=== PATIENT | female | born 1945 | race Asian ===

== ENCOUNTER 2017-03-01 15:53 | Inpatient (IN) | payer OTHER ==
[~2017-03-01] VITALS: Ht 157.5 cm; Wt 62.1 kg
--- NOTE | 2017-03-01 16:00 | NUR ---
PT AMBULATORY TO ER BED 09 ACCOMPANIED BY FAMILY. PT IS C/O RUQ ABDOMINAL PAIN X 2 DAYS. PT ALSO C/O N/V. PLACED ON MONITOR. STABLE VITALS. AWAITING MD LENNON.
--- NOTE | 2017-03-01 16:09 | NUR ---
DR VERMA AT BEDSIDE FOR EVAL.
[2017-03-01] MEDS ORDERED: MORPHINE SULFATE INJ 4 MG/ML DISP.SYRIN ONE ×2 (16:18→16:27)
[2017-03-01] MEDS ORDERED: ONDANSETRON HCL/PF 4 MG/2 ML VIAL ONE (16:18)
--- NOTE | 2017-03-01 16:19 | NUR ---
IV LINE STARTED BLOOD DRAWN AND SENT TO LAB.
[2017-03-01 16:23] LABS: BASOPHILS # (AUTO) 0.1 /CMM (0.0-0.2); BASOPHILS % (AUTO) 0.7 % (0.0-2.0); EOSINOPHILS # (AUTO) 0.1 /CMM (0.0-0.7); EOSINOPHILS % (AUTO) 1.2 % (0.0-6.0); HEMATOCRIT 46 % (33-45); HEMOGLOBIN 15.2 g/dL (11.5-14.8); LYMPHOCYTES # (AUTO) 3.1 /CMM (0.8-4.8); MEAN CORPUSCULAR HEMOGLOBIN 30 PG (26.0-33.0); MEAN CORPUSCULAR HGB CONC 33 g/dl (31.0-36.0); MEAN CORPUSCULAR VOLUME 89 fL (82-100); MONOCYTES # (AUTO) 0.6 /CMM (0.1-1.30); MONOCYTES % (AUTO) 4.6 % (2.0-12.0); NEUTROPHILS # (AUTO) 8.6 /CMM (1.8-8.9); NEUTROPHILS % (AUTO) 68.5 % (43.0-81.0); PLATELET COUNT (AUTO) 212 /CMM (150-450); RDW COEFFICIENT OF VARIATION 12.9 (11.5-15.0); RED BLOOD CELL COUNT(AUTO) 5.16 MIL/uL (4.0-5.2); WHITE BLOOD COUNT (AUTO) 12.5 K/uL (4.3-11.0)
[2017-03-01] MEDS ORDERED: ONDANSETRON HCL/PF 4 MG/2 ML VIAL IVP ONE (16:30)
[2017-03-01] MEDS ORDERED: IV NS 0.9% 1,000 ML BAG IV ONE ×2 (16:30→17:30)
[2017-03-01] MEDS ORDERED: MORPHINE SULFATE INJ 2 MG/ML DISP.SYRIN IV ONE (16:30)
[2017-03-01 16:36] LABS: CALCIUM, SERUM 9.5 mg/dL (8.5-10.1); CARBON DIOXIDE 28 mmol/L (21-32); CHLORIDE 104 mmol/L (98-107); CREATININE 0.8 mg/dL (0.6-1.3); GLUCOSE 122 mg/dL (74-106); POTASSIUM 3.7 mmol/L (3.5-5.1); SODIUM SERUM 140 mmol/L (136-145); UREA NITROGEN, BLOOD 10 mg/dL (7-18)
[2017-03-01 16:37] LABS: INR 1.09 (0.87-1.13); PROTHROMBIN TIME 11.3 SECS (9.5-12.7)
[2017-03-01 16:42] LABS: ALANINE AMINOTRANSFERASE 34 U/L (12-78); ALBUMIN 3.5 g/dL (3.4-5.0); ALKALINE PHOSPHATASE 101 U/L (46-116); ASPARTATE AMINOTRANSFERASE 85 U/L (15-37); BILIRUBIN,DIRECT 0.5 mg/dL (0.0-0.2); LIPASE 167 U/L (73-393); TOTAL PROTEIN, SERUM 8.8 g/dL (6.4-8.2)
[2017-03-01] MEDS ORDERED: LEVOFLOXACIN 750 MG /D5W 150ML 150 ML IV ONE ×2 (17:27→17:30)
[2017-03-01 17:55] LABS: APPEARANCE,URINE Clear (CLEAR); BILIRUBIN,URINE SMALL (NEGATIVE); BLOOD, URINE Trace-intact Ery/uL (NEGATIVE); COLOR,URINE Yellow (YELLOW); KETONES,URINE Negative (NEGATIVE); LEUKOCYTE ESTERASE ,URINE Trace (NEGATIVE); NITRITE, URINE Negative (NEGATIVE); PH,URINE 7.5 (5.0-8.0); PROTEIN,URINE 100 mg/dl (NEGATIVE); UGLUCOSE Negative (NEGATIVE)
[2017-03-01] MEDS ORDERED: LEVO50TA8 PO (18:04)
[2017-03-01] MEDS ORDERED: HYDR-548 PO (18:04)
[2017-03-01 18:08] LABS: SQUAMOUS EPITHELIAL CELL,UR Few /HPF (None Seen)
[2017-03-01 18:09] LABS: BACTERIA,URINE Few /HPF (None Seen); COARSE GRANULAR CASTS,URINE Few /LPF (None Seen); MUCUS,URINE Moderate /LPF (None Seen)
--- NOTE | 2017-03-01 18:11 | NUR ---
CALLED DriverSide, PRIMARY CLASS TEACHER WAS PAGED.
[2017-03-01] MEDS ORDERED: ZOLPIDEM TARTRATE 5 MG TABLET PO PRN (18:30)
[2017-03-01] MEDS ORDERED: MAG HYDROX/AL HYDROX/SIMETH 30 ML UDC PO PRN (18:30)
[2017-03-01] MEDS ORDERED: HYDROCODONE/APAP 5/325MG 1 EACH TABLET PO PRN (18:30)
[2017-03-01] MEDS ORDERED: Z GUARD REMEDY 2 OZ OINT TP PRN (18:30)
[2017-03-01] MEDS ORDERED: ALBUTEROL FS 2.5 MG/3 ML VIAL.NEB NEB PRN (18:30)
[2017-03-01] MEDS ORDERED: MAGNESIUM HYDROXIDE 30 ML UDC PO PRN (18:30)
[2017-03-01] MEDS ORDERED: ACETAMINOPHEN 325 MG TABLET PO PRN (18:30)
--- NOTE | 2017-03-01 18:46 | NUR ---
TRIED CALLING FOR REPORT. PLACED ON LONG HOLD.
[2017-03-01 19:45] VITALS: BP 140/68
--- NOTE | 2017-03-01 19:45 | NUR ---
BRASS FINISHER NOTES RECEIVED PATIENT FROM ER VIA [facility], ACCOMPANIED BY PATIENT DAUGHTER AND GRANDDAUGHTER. PATIENT ABLE TO AMBULATE STEADILY WITH ASSISTANCE FROM GURNEY TO BED. PATIENT PLACED ON TELEMETRY MONITORING, REVEALING SINUS RHYTHM, HR = 88 AT THIS TIME. BREATHING IS EVEN AND NONLABORED, TOLERATING ROOM AIR WELL, DENIES NEED FOR ADDITIONAL O2. IV SITE FLUSHED WITH NS, PATENT AND INTACT, FREE FROM ANY S/S OF INFILTRATION OR PHLEBITIS, WILL START IVF AND IV ANTIBIOTICS ORDERED. PATIENT REFUSES TO REMOVE PANTS, UNABLE TO ASSESS SKIN UNDER PANTS. THE SKIN THAT IS VISIBLE IS INTACT, WILL CONTINUE TO CLOSELY MONITOR. PLAN OF CARE DISCUSSED WITH THE PATIENT AND HER FAMILY MEMBERS, WHOM ALL VERBALIZE UNDERSTANDING REGARDING THE PLAN. ALL PERTINENT QUESTIONS AND CONCERNS ADDRESSED. BED LEFT IN LOWEST AND LOCKED POSITION. WILL CONTINUE TO CLOSELY MONITOR
[2017-03-01 20:00] VITALS: BP 140/68
[2017-03-01] MEDS: CEFTRIAXONE 1 G in IV D5W 50 ML IV SCH (20:19)
[2017-03-01] MEDS: IV NS 0.9% 1,000 ML IV PRN (20:19)
[2017-03-01] MEDS: AZITHROMYCIN 250 MG TABLET PO SCH (20:19)
[2017-03-01] MEDS: HYDROCODONE/APAP 10/325MG 1 EA TABLET PO PRN (20:37)
[2017-03-02] VITALS: BP 138/61
[2017-03-02 04:00] VITALS: BP 159/76
[2017-03-02] MEDS: HYDROCODONE/APAP 10/325MG 1 EA TABLET PO PRN ×2 (04:11→14:40)
[2017-03-02] MEDS: ONDANSETRON HCL/PF 4 MG/2 ML VIAL IVP PRN (04:11)
--- NOTE | 2017-03-02 04:45 | NUR ---
RN NOTES 0411 PATIENT NOTED WITH NAUSEA, ZOFRAN ADMINISTERED. NOTED WITH EPISODE OF EMESIS @ 0415. PATIENT GIVEN EMESIS BAG. ENCOURAGED PATIENT TO MINIMIZE MOVEMENT, SINCE SHE STATED THAT MOVING AROUND AND GOING TO THE BATHROOM MADE HER DIZZY. SAFETY MAINTAINED AT ALL TIMES, PATIENT'S GRAND DAUGHTER REMAINS AT BEDSIDE. WILL CONTINUE TO CLOSELY MONITOR
[2017-03-02 06:50] LABS: BASOPHILS % (AUTO) 0.3 % (0.0-2.0); EOSINOPHILS % (AUTO) 0.4 % (0.0-6.0); HEMATOCRIT 39 % (33-45); HEMOGLOBIN 12.9 g/dL (11.5-14.8); LYMPHOCYTES # (AUTO) 2.1 /CMM (0.8-4.8); LYMPHOCYTES % (AUTO) 27.4 % (20.0-44.0); MEAN CORPUSCULAR HEMOGLOBIN 30 PG (26.0-33.0); MEAN CORPUSCULAR HGB CONC 33 g/dl (31.0-36.0); MEAN CORPUSCULAR VOLUME 89 fL (82-100); MONOCYTES # (AUTO) 0.5 /CMM (0.1-1.30); MONOCYTES % (AUTO) 6.6 % (2.0-12.0); NEUTROPHILS # (AUTO) 4.9 /CMM (1.8-8.9); NEUTROPHILS % (AUTO) 65.3 % (43.0-81.0); PLATELET COUNT (AUTO) 158 /CMM (150-450); RDW COEFFICIENT OF VARIATION 13.3 (11.5-15.0); RED BLOOD CELL COUNT(AUTO) 4.36 MIL/uL (4.0-5.2); WHITE BLOOD COUNT (AUTO) 7.5 K/uL (4.3-11.0)
--- NOTE | 2017-03-02 07:00 | NUR ---
RN CLOSING NOTES PATIENT REMAINS IN BED, WITH GRANDDAUGHTER AT BEDSIDE. NO ACUTE CHANGES, PATIENT ENDORSED TO THE AM SHIFT NURSE FOR BENJA
--- NOTE | 2017-03-02 07:05 | NUR ---
RN INITIAL NOTE PATIENT RECEIVED IN BED, RESTING. AWAKE, ALERT AND ORIENTED. [facility] SPEAKING. GRANDDAUGHTER AT BEDSIDE TRANSLATING. ABLE TO MAKE NEEDS KNOWN. SINUS RHYTHM ON TELE MONITOR. NO S/S OF PAIN OR DISCOMFORT. RESPIRATIONS ARE EVEN AND UNLABORED. NO S/S SOB OR RESPIRATORY DISTRESS. SATING WELL ON 2L NASAL CANULA. SKIN IS WARM AND DRY TO TOUCH. IV SITE FLUSHED, PATENT. SAFETY PRECAUTIONS IMPLEMENTED, BED IN LOCKED, LOW POSITION WITH TWO SIDE RAILS UP. CALL LIGHT AND BELONGINGS WITHIN EASY REACH. WILL CONTINUE TO MONITOR CLOSELY.
[2017-03-02 07:06] LABS: CALCIUM, SERUM 8.4 mg/dL (8.5-10.1); CARBON DIOXIDE 23 mmol/L (21-32); CHLORIDE 107 mmol/L (98-107); CREATININE 0.7 mg/dL (0.6-1.3); GLUCOSE 135 mg/dL (74-106); POTASSIUM 4.1 mmol/L (3.5-5.1); SODIUM SERUM 140 mmol/L (136-145); UREA NITROGEN, BLOOD 8 mg/dL (7-18)
[2017-03-02 07:07] LABS: MAGNESIUM 1.8 mg/dL (1.8-2.4); PHOSPHORUS 3.3 mg/dL (2.5-4.9)
[2017-03-02 07:30] LABS: CHOLESTEROL 157 mg/dL (<200); HDL CHOLESTEROL 25 mg/dL (40-60); LDL 106 mg/dL (0-99); TRIGLYCERIDES 139 mg/dL (30-150)
[2017-03-02] MEDS: LEVOTHYROXINE SODIUM 50 MCG TABLET PO SCH (07:48)
[2017-03-02] MEDS: PANTOPRAZOLE 40 MG TABLET.DR PO SCH (07:49)
[2017-03-02 08:00] VITALS: BP 133/66
[2017-03-02] MEDS: IV NS 0.9% 1,000 ML IV PRN (10:18)
[2017-03-02 12:00] VITALS: BP_SYST 128; BP_DIAS 61; BP_DIAS 71
[2017-03-02 16:00] VITALS: BP 127/65
[2017-03-02] MEDS: CEFTRIAXONE 1 G in IV D5W 50 ML IV SCH (18:35)
[2017-03-02] MEDS: AZITHROMYCIN 250 MG TABLET PO SCH (18:35)
--- NOTE | 2017-03-02 19:30 | NUR ---
HOTEL OFFICE MANAGER NOTES RECEIVED PATIENT FROM DAY SHIFT NURSE. PATIENT IS A/O X4, MARTINIQUAIS SPEAKING, FAMILY MEMBERS AT BEDSIDE TO AIDE IN TRANSLATION. BREATHING IS EVEN AND NONLABORED, TOLERATING ROOM AIR WELL, DENIES NEED FOR ADDITIONAL O2, S/P RIGHT US GUIDED THORACENTESIS. PATIENT STATES NOTED IMPROVEMENT IN RESPIRATORY FUNCTION AFTER FLUID WAS REMOVED. IV SITE FLUSHED WITH NS, PATENT AND INTACT, FREE FROM ANY S/S OF INFILTRATION OR PHLEBITIS, IVF INFUSING PRESCRIBED. PLAN OF CARE DISCUSSED WITH THE PATIENT AND HER FAMILY MEMBERS, WHOM ALL VERBALIZE UNDERSTANDING REGARDING THE PLAN. ALL PERTINENT QUESTIONS AND CONCERNS ADDRESSED. BED LEFT IN LOWEST AND LOCKED POSITION. WILL CONTINUE TO CLOSELY MONITOR
[2017-03-02 20:00] VITALS: BP 126/63
[2017-03-03] VITALS: BP 123/66
[2017-03-03 04:00] VITALS: BP 133/58
[2017-03-03] MEDS: HYDROCODONE/APAP 10/325MG 1 EA TABLET PO PRN ×2 (04:28→14:03)
[2017-03-03] MEDS: ONDANSETRON HCL/PF 4 MG/2 ML VIAL IVP PRN (04:28)
[2017-03-03] MEDS: IV NS 0.9% 1,000 ML IV PRN ×2 (04:29→18:02)
--- NOTE | 2017-03-03 07:00 | NUR ---
RN CLOSING NOTES PATIENT RESTING COMFORTABLY IN BED, DENIES PAIN AT THIS TIME. NO ACUTE CHANGES THROUGHOUT SHIFT, PATIENT ENDORSED TO THE AM SHIFT NURSE FOR BENJA
--- NOTE | 2017-03-03 07:00 | NUR ---
RN NOTES REPORT RECEIVED AT THE BEDSIDE. PATIENT RESTING COMFORTABLY IN BED. NO SOB OR DISTRESS NOTED AT THIS TIME. PATIENT DENIES PAIN. HEART RATE SR IN THE 60S. BED IN A LOW POSITION, CALL LIGHT WITHIN PATIENT REACH, FAMILY IS AT THE BEDSIDE. WILL CONTINUE TO MONITOR.
[2017-03-03] MEDS: PANTOPRAZOLE 40 MG TABLET.DR PO SCH (07:48)
[2017-03-03] MEDS: LEVOTHYROXINE SODIUM 50 MCG TABLET PO SCH (07:48)
[2017-03-03 08:00] VITALS: BP 123/58
[2017-03-03 16:00] VITALS: BP 120/61
[2017-03-03 16:54] VITALS: BP 120/61
[2017-03-03] MEDS: CEFTRIAXONE 1 G in IV D5W 50 ML IV SCH (18:02)
--- NOTE | 2017-03-03 18:32 | NUR ---
RN CLOSING NOTES NO SIGNIFICANT CHANGES IN PATIENT CONDITION THROUGHOUT THE SHIFT. NO SOB OR DISTRESS NOTED AT THIS TIME. PATIENT DENIES SIGNIFICANT PAIN. BED IN A LOW POSITION, CALL LIGHT WITHIN PATIENT REACH, FAMILY IS AT THE BEDSIDE. WILL ENDORSE FOR BENJA.
--- NOTE | 2017-03-03 19:30 | NUR ---
Received patient in the bed with family member at bedside.Requested that I turn IVF on.Turn on and place on the left side of bed so PT will have better access to the restroom.No unusual signs or symptoms observed or reported,no signs of discomfort or distress.Resting quietly.Vital signs taken all are in the normal range.NS is attached and infusing at 75 cc/hr via a heplock on the right arm.No redness or swelling at insertion site.
[2017-03-03 20:00] VITALS: BP 134/67
[2017-03-04] MEDS: HYDROCODONE/APAP 10/325MG 1 EA TABLET PO PRN ×3 (00:20→19:17)
--- NOTE | 2017-03-04 00:21 | NUR ---
Requested pain medication.Medicated with [place] 10 mg as per Md's orders,no problems
[2017-03-04 04:00] VITALS: BP 124/65
--- NOTE | 2017-03-04 06:54 | NUR ---
Returned medication after patient's daughter said patient wants to take meds after breakfast,no problems
[2017-03-04 08:00] VITALS: BP 141/71
[2017-03-04] MEDS: PANTOPRAZOLE 40 MG TABLET.DR PO SCH (09:29)
[2017-03-04] MEDS: LEVOTHYROXINE SODIUM 50 MCG TABLET PO SCH (09:29)
[2017-03-04] MEDS ORDERED: IV NS 0.9% 250 ML IV ONE (10:58)
[2017-03-04] MEDS ORDERED: CT SWABBABLE VALVE TRANS SET 1 EA INFUS.SET MC ONE (10:58)
[2017-03-04] MEDS ORDERED: IOHEXOL-300 100 ML VIAL IV ONE (10:58)
[2017-03-04] MEDS: ONDANSETRON HCL/PF 4 MG/2 ML VIAL IVP PRN (11:30)
[2017-03-04 15:03] VITALS: BP 141/71
[2017-03-04 16:00] VITALS: BP 111/66
[2017-03-04] MEDS: CEFTRIAXONE 1 G in IV D5W 50 ML IV SCH (17:40)
--- NOTE | 2017-03-04 19:15 | NUR ---
pt in stable condition.no s/s of distress ,all m.d orders noted.safety precautions in place.bed in low and lock position
[2017-03-04 20:00] VITALS: BP 133/63
[2017-03-04] MEDS: IV NS 0.9% 1,000 ML IV PRN (21:49)
[2017-03-05 04:00] VITALS: BP 131/75
[2017-03-05] MEDS: HYDROCODONE/APAP 10/325MG 1 EA TABLET PO PRN ×3 (04:10→18:31)
--- NOTE | 2017-03-05 07:23 | NUR ---
GUM REMOVER INIATIAL NOTES Received patient in the bed with family member at bedside. Alert and oriented x4, .No unusual signs or symptoms observed or reported,no signs of discomfort or distress.Resting quietly.Vital signs taken all are in the normal range.NS is attached and infusing at 75 cc/hr via a heplock on the right arm.No redness or swelling at insertion site.
--- NOTE | 2017-03-05 07:30 | NUR ---
RECEIVED PT IN BED,
[2017-03-05 08:00] VITALS: BP 109/67
[2017-03-05] MEDS: PANTOPRAZOLE 40 MG TABLET.DR PO SCH (09:25)
[2017-03-05] MEDS: LEVOTHYROXINE SODIUM 50 MCG TABLET PO SCH (09:25)
[2017-03-05] MEDS: IV NS 0.9% 1,000 ML IV PRN ×2 (10:49→23:23)
--- NOTE | 2017-03-05 11:00 | NUR ---
pt asked for pain med, anyi , assess pain 6/10 , r/ hip as reposition, will assess after 1 hr
[2017-03-05] MEDS: CEFTRIAXONE 1 G in IV D5W 50 ML IV SCH (19:06)
--- NOTE | 2017-03-05 19:26 | NUR ---
CARDING MACHINE FEEDER CLOSING NOTES PATIENT AWAKE AND RESTING COMFORTABLY IN BED. A/O X 2 AND VERBALLY RESPONSIVE. ALL NEEDS AND CARE ATTENDED WELL. ON 02 VIA N/C AT 2LPM, TOLERATING WELL WITH SOB NOTED. NO ACUTE CHANGES THROUGHOUT SHIFT. PATIENT ENDORSED TO THE COLLECTION SYSTEMS WORKER NURSE FOR BENJA. Addendum: 03/05/17 at 1930 by MONI LEE LVN CORRECTION: PT DIDN'T HAVE SOB TODAY.
[2017-03-05 20:00] VITALS: BP 142/61
[2017-03-06 04:00] VITALS: BP 138/72
[2017-03-06] MEDS: HYDROCODONE/APAP 10/325MG 1 EA TABLET PO PRN ×2 (04:06→10:24)
--- NOTE | 2017-03-06 07:00 | NUR ---
MS RN NOTE: RECEIVED PT RESTING IN BED. RESPIRATIONS EVEN AND UNLABORED WITH NO SOB NOTED. NAMIBIAN SPEAKING WITH FAMILY AT BEDSIDE AVAILABLE TO TRANSLATE. AOX4, DENIES PAIN. RFA INTACT AND PATENT WITH NS RUNNING AT 75CC/HR. BED LOW, LOCKED, X2 SIDE RAILS UP AND CALL LIGHT WITHIN REACH. WILL CONT TO MONITOR.
[2017-03-06 08:00] VITALS: BP 133/56
[2017-03-06] MEDS: LEVOTHYROXINE SODIUM 50 MCG TABLET PO SCH (08:35)
[2017-03-06] MEDS: PANTOPRAZOLE 40 MG TABLET.DR PO SCH (08:35)
[2017-03-06] MEDS: IV NS 0.9% 1,000 ML IV PRN (08:54)
[2017-03-06] MEDS ORDERED: LEVO500T15 PO (11:26)
--- NOTE | 2017-03-06 12:30 | NUR ---
MS RN NOTE: PATIENT D/C BACK HOME IN STABLE CONDITION. VS: 97.7 TEMP, 63 HR, 18 RR, 91% O2SAT, 133/56. D/C FORMS AND BELONGINGS LIST SIGNED BY DAUGHTER. BELONGINGS RETURNED. D/C PACKET AND RX GIVEN TO DAUGHTER. ORDERS CARRIED OUT. PT LEFT THE UNIT AT 1230 VIA WHEELCHAIR WITH DAUGHTER.
== END 2017-03-06 12:33 | disposition home or self-care (01) | DRG 181 ==
LOC: ER 15:55 → TELE1 19:00 → MEDSG1 03-03 09:52
PROVIDERS: ADMIT Internal Medicine; ATTEND Internal Medicine
PROC: 0W993ZZ Drainage of Right Pleural Cavity, Percutaneous Approach (ICD-10-PCS; principal; 2017-03-02)
DX: C78.2 Secondary malignant neoplasm of pleura (principal); E87.2 Acidosis; J91.0 Malignant pleural effusion; E44.1 Mild protein-calorie malnutrition; K74.60 Unspecified cirrhosis of liver; N39.0 Urinary tract infection, site not specified; J98.11 Atelectasis; E03.9 Hypothyroidism, unspecified; E78.5 Hyperlipidemia, unspecified; F17.200 Nicotine dependence, unspecified, uncomplicated; K21.9 Gastro-esophageal reflux disease without esophagitis; Z92.3 Personal history of irradiation; Z85.3 Personal history of malignant neoplasm of breast; Z92.21 Personal history of antineoplastic chemotherapy; Z68.25 Body mass index [BMI] 25.0-25.9, adult
CPT/HCPCS: 36415; 71010-TC; 71111-TC; 71260-TC; 76942-TC; 80048-TC; 80061-TC; 80076-TC; 81000-TC; 83605-TC; 83690-TC; 83735-TC; 84100-TC; 84155-TC; 84443-TC; 85025-TC; 85730-TC; 86300; 86803; 87040-TC; 87081-TC; 87086-TC; 87340; 88305-TC; 88312-TC; 88342; 89051-TC; 93307-TC; A4606; J0696; J1956; J2270; J2405; J7030; J7042; J7050; J7060; Q9967; Z7610

== ENCOUNTER 2017-09-15 14:11 | Inpatient (IN) | payer MEDICARE, OTHER ==
[~2017-09-15] VITALS: Ht 160 cm; Wt 51.7 kg
[~2017-09-15 14:11] MED LIST: HYDR-548 PO; LEVO500T75 PO; LEVO50TA8 PO
--- NOTE | 2017-09-15 14:15 | NUR ---
BB FAMILY: C/O SOB, HISTORY OF PLEURAL EFFUSION. S/P CHEMO YESTERDAY. A/O X2, BREATHING EVEN AND UNLABORED AT THIS TIME. NAD, VITALS STABLE. SAFETY AND COMFORT MEASURES IN PLACE. AWAITING MD ORDERS
[2017-09-15] MEDS ORDERED: HYDR-548 PO (14:37)
[2017-09-15] MEDS ORDERED: GABA-534 PO (14:37)
[2017-09-15] MEDS ORDERED: ANAS1TAB8 PO (14:37)
[2017-09-15] MEDS ORDERED: FOLI1TAB16 PO (14:37)
[2017-09-15] MEDS ORDERED: FERR325T23 PO (14:37)
[2017-09-15] MEDS ORDERED: LORA1TAB PO (14:37)
[2017-09-15] MEDS ORDERED: CAPE500T15 PO (14:37)
--- NOTE | 2017-09-15 14:40 | NUR ---
NEW IV STARTED ON RAC, 20G, BLOOD DRAWN AND SENT TO LAB.
[2017-09-15 14:48] LABS: BASOPHILS % (AUTO) 0.4 % (0.0-2.0); EOSINOPHILS % (AUTO) 2.2 % (0.0-6.0); HEMATOCRIT 32 % (33-45); HEMOGLOBIN 10.7 g/dL (11.5-14.8); LYMPHOCYTES % (AUTO) 31.9 % (20.0-44.0); MEAN CORPUSCULAR HGB CONC 34 g/dl (31.0-36.0); MEAN CORPUSCULAR VOLUME 84 fL (82-100); MONOCYTES # (AUTO) 0.5 /CMM (0.1-1.30); MONOCYTES % (AUTO) 8.6 % (2.0-12.0); NEUTROPHILS # (AUTO) 3.7 /CMM (1.8-8.9); NEUTROPHILS % (AUTO) 56.9 % (43.0-81.0); PLATELET COUNT (AUTO) 232 /CMM (150-450); RDW COEFFICIENT OF VARIATION 19.1 (11.5-15.0); WHITE BLOOD COUNT (AUTO) 6.3 K/uL (4.3-11.0)
--- NOTE | 2017-09-15 14:55 | NUR ---
AIR CONDITIONING MECHANIC INDUSTRIAL AT BEDSIDE.
[2017-09-15 15:03] LABS: CALCIUM, SERUM 9.2 mg/dL (8.5-10.1); CARBON DIOXIDE 28 mmol/L (21-32); CHLORIDE 107 mmol/L (98-107); CREATININE 0.6 mg/dL (0.6-1.3); GLUCOSE 114 mg/dL (74-106); POTASSIUM 3.6 mmol/L (3.5-5.1); SODIUM SERUM 142 mmol/L (136-145); UREA NITROGEN, BLOOD 13 mg/dL (7-18)
--- NOTE | 2017-09-15 15:03 | NUR ---
Ronan nolen in [facility] - 09/15/17 at 1606 by ROBERT PATIENT TAKEN TO CT VIA STRETCHER.
[2017-09-15 15:12] LABS: TROPONIN I < 0.017 ng/mL (0.00-0.056)
[2017-09-15 15:16] LABS: B-TYPE NATRIURETIC PEPTIDE 107 PG/ML (0-125)
[2017-09-15] MEDS ORDERED: LEVOFLOXACIN 750 MG /D5W 150ML 150 ML IV ONE (15:30)
[2017-09-15] MEDS ORDERED: IV NS 0.9% 1,000 ML BAG IV ONE (15:30)
[2017-09-15] MEDS ORDERED: PIPERACILLIN /TAZOBACTAM 3.375 G in IV D5W 50 ML IV ONE (15:30)
--- NOTE | 2017-09-15 15:45 | NUR ---
CALLED DR MENDEZ DUE TO PT HAVING "REGAL INSURANCE".
--- NOTE | 2017-09-15 15:45 | NUR ---
PT IS ASSIGNED TO [facility] RM#:[id number], PT IS DIAGNOSED WITH PNEUMONIA, AND DR MENDEZ IS THE ACCEPTING MD.
[2017-09-15] MEDS ORDERED: IOHEXOL-300 100 ML VIAL IV ONE (15:49)
[2017-09-15] MEDS ORDERED: IV NS 0.9% 250 ML IV ONE (15:49)
--- NOTE | 2017-09-15 15:55 | NUR ---
PATIENT TAKEN TO CT VIA STRETCHER.
--- NOTE | 2017-09-15 15:58 | NUR ---
REPORT GIVEN TO VICKY MENCHACA FOR BENJA UPON ADMISSION.
[2017-09-15 16:00] VITALS: BP 131/69
--- NOTE | 2017-09-15 16:05 | NUR ---
PATIENT RETURNED FROM CT IN STABLE CONDITION.
--- NOTE | 2017-09-15 16:17 | NUR ---
CALLED DR MENDEZ TO LET HIM KNOW THAT THE PATIENT'S REGAL INSURANCE IS NOT "ACTIVE" PER KARAN IN THE ADMITTING DEPARTMENT. I NOTIFIED HIM THAT PATIENT WILL BE ADMITTED TO THE PANEL GROUP.
--- NOTE | 2017-09-15 16:17 | NUR ---
IVAN MONTERO FOR PANEL CALL AND DR KENNEDY WAS PAGED
[2017-09-15] MEDS ORDERED: ALBUTEROL FS 2.5 MG/3 ML VIAL.NEB CONTNEB ONE (17:00)
[2017-09-15] MEDS ORDERED: ALBUTEROL FS 2.5 MG/3 ML VIAL.NEB ONE (17:03)
--- NOTE | 2017-09-15 17:29 | NUR ---
PATIENT TRANSPORTED TO [facility] VIA ACLS PROTOCOL. RNVICKY TO PROVIDE BENJA.
--- NOTE | 2017-09-15 17:30 | NUR ---
AIRPORT SCREENER RECEIVED PATIENT FROM E.R. DEPT, PATIENT ALERT AND ORIENTED X3, DUTCH SPEAKING ONLY, DAUGHTER AT BEDSIDE FOR TRANSLATION, PATIENT STILL C/O SHORTNESS OF BREATH EVEN AFTER BREATHING TREATMENT, SKIN ASSESSMENT COMPLETED, SKIN DRY AND INTACT, FAMILY ABLE TO PROVIDE HISTORY FOR THE PATIENT. NEEDS ATTENDED AND MET, CALL LIGHT WITHIN REACH, WILL CONTINUE TO MONITOR.
[2017-09-15] MEDS ORDERED: HYDROCODONE/APAP 10/325MG 1 EA TABLET PO PRN (18:00)
[2017-09-15] MEDS ORDERED: ACETAMINOPHEN 325 MG TABLET PO PRN (18:00)
[2017-09-15] MEDS ORDERED: MAG HYDROX/AL HYDROX/SIMETH 30 ML UDC PO PRN (18:00)
[2017-09-15] MEDS ORDERED: CAPECITABINE 500 MG TABLET PO SCH (18:00)
[2017-09-15] MEDS ORDERED: PIPERACILLIN /TAZOBACTAM 4.5 G in IV NS 0.9% 50 ML IV SCH (18:00)
[2017-09-15] MEDS ORDERED: MAGNESIUM HYDROXIDE 30 ML UDC PO PRN (18:00)
[2017-09-15] MEDS ORDERED: Z GUARD REMEDY 2 OZ OINT TP PRN (18:00)
[2017-09-15] MEDS: IV NS 0.9% 1,000 ML IV PRN (18:29)
[2017-09-15] MEDS ORDERED: FEE PK DOSING 1 MIN EA MC ONE (18:30)
[2017-09-15] MEDS: GABAPENTIN 300 MG CAPSULE PO SCH ×2 (18:34→19:00)
[2017-09-15] MEDS: FERROUS SULFATE (325 MG) 325 MG/TAB TABLET PO SCH ×2 (18:38→19:00)
[2017-09-15] MEDS: LEVOTHYROXINE SODIUM 50 MCG TABLET PO SCH ×2 (18:38→19:00)
[2017-09-15] MEDS: FOLIC ACID 1 MG TABLET PO SCH ×2 (18:38→19:00)
--- NOTE | 2017-09-15 19:10 | NUR ---
RN NOTES PATIENT SEEN AND EXAMINED BY DR. KENNEDY, AND RECEIVED NEW ORDERS. ORDER NOTED AND CARRIED OUT. PATIENT'S MEDICATION SENT TO PHARMACY, FOR DISPENSING. PATIENT'S DENIES FEELING SOB AT THIS TIME, CURRENTLY ON O2 AT 4LPM VIA NC. DAUGHTER AT BEDSIDE, AND WILL SPEND NIGHT. ALL DUE MEDS GIVEN ORDERED. PIV PATENT AND FLUSHES WELL, ALL NEEDS ATTENDED AND ANTICIPATED, CALL LIGHT WITHIN REACH, SAFETY MEASURES IN PLACED, WILL ENDORSE TO LUMBER RACKER FOR BENJA.
--- NOTE | 2017-09-15 19:40 | NUR ---
ARTIST SCIENTIFIC NOTES RECEIVED ON BED A/O X2-3,BREATHING NON LABORED,O2 IN USED AT 2L/NC TO KEEP O2 SAT ABOVE 90%.RT AT BEDSIDE ADMINISTERING BREATHING TREATMENT SCHEDULED.PRESENT IVF NS AT 75ML HR RATE IN PROGRESS VIA IV PUMP ON RIGHT AC.DAUGHTER AT BEDSIDE.CALL LIGHT IN REACH,NEEDS ANTICIPATED.
[2017-09-15] MEDS: ALBUTEROL FS 2.5 MG/0.5 ML VIAL.NEB NEB SCH ×2 (19:49→22:50)
[2017-09-15] MEDS: IPRATROPIUM NEB FS 0.5 MG/2.5 ML AMPUL.NEB NEB SCH ×2 (19:49→22:50)
[2017-09-15] MEDS: CAPECITABINE 500 MG PO SCH (19:54)
[2017-09-15] MEDS: VANCOMYCIN 0.75 GM in IV NS 0.9% 250 ML IV SCH (19:54)
--- NOTE | 2017-09-15 19:54 | NUR ---
EXTENSION DIVISION DIRECTOR NOTES TELE SR-81,DUE CAPECITABINE 500MG.2 TABS PO GIVEN.
[2017-09-15 20:00] VITALS: BP 118/65
--- NOTE | 2017-09-15 20:00 | NUR ---
CARD FIXER NOTES STARTED ON LOVENOX 40MG SQ,GIVEN ON RIGHT LOWER ABDOMEN
--- NOTE | 2017-09-15 20:00 | NUR ---
FLIGHT COMMUNICATIONS OPERATOR NOTES STARTED ON VANCOMYCIN 0.75GM IVPB HUNG
[2017-09-15] MEDS: ENOXAPARIN SODIUM 40 MG/0.4 ML DISP.SYRIN SQ SCH (20:07)
[2017-09-15] MEDS: ZOSYN IVPB 3.375 G in IV D5W 50ml IV SCH (21:12)
[2017-09-15] MEDS: ZOLPIDEM TARTRATE 5 MG TABLET PO PRN (21:20)
--- NOTE | 2017-09-15 21:20 | NUR ---
BODY FITTER NOTES DAUGHTER REQUESTED SOMETHING TO RELAX AND SLEEP FOR HRE MOM.AMBIEN 5MG PO GIVEN.
[2017-09-16] VITALS: BP 119/59
[2017-09-16] MEDS: IPRATROPIUM NEB FS 0.5 MG/2.5 ML AMPUL.NEB NEB SCH ×5 (02:54→20:20)
[2017-09-16] MEDS: ALBUTEROL FS 2.5 MG/0.5 ML VIAL.NEB NEB SCH ×5 (02:54→20:20)
[2017-09-16] MEDS: ZOSYN IVPB 3.375 G in IV D5W 50ml IV SCH ×4 (03:06→21:46)
--- NOTE | 2017-09-16 03:15 | NUR ---
ELECTROLYSIS INVESTIGATOR NOTES C/O COUGH,ROBITUSSIN 5ML PO GIVEN ORDERED BY DR FOLEY.
[2017-09-16] MEDS: GUAIFENESIN/D-METHORPHAN HB 5 ML UDC PO PRN ×2 (03:30→21:26)
[2017-09-16 04:00] VITALS: BP 116/65
--- NOTE | 2017-09-16 06:09 | NUR ---
COST RECOVERY TECHNICIAN NOTES SR-79 ON TELE MONITOR.AFEBRILE THRU OUT SHIFT.IVF IN PROGRESS,IV ABX TOLERATED WELL.BREATHING TREATMENT EFFECTIVE ,NO SOB.FOR U/S GUIDED THORACENTESIS TODAY,CONSENT SIGNED ON CHART.CALL LIGHT IN REACH,NEEDS ATTENDED.WILL ENDORSE TO DAY NURSE FOR BENJA.
[2017-09-16 07:18] LABS: BASOPHILS % (AUTO) 0.4 % (0.0-2.0); EOSINOPHILS % (AUTO) 0.6 % (0.0-6.0); HEMATOCRIT 29 % (33-45); HEMOGLOBIN 10.2 g/dL (11.5-14.8); LYMPHOCYTES # (AUTO) 1.3 /CMM (0.8-4.8); LYMPHOCYTES % (AUTO) 21.5 % (20.0-44.0); MEAN CORPUSCULAR HGB CONC 35 g/dl (31.0-36.0); MEAN CORPUSCULAR VOLUME 83 fL (82-100); MONOCYTES # (AUTO) 0.5 /CMM (0.1-1.30); MONOCYTES % (AUTO) 8.3 % (2.0-12.0); NEUTROPHILS # (AUTO) 4.4 /CMM (1.8-8.9); NEUTROPHILS % (AUTO) 69.2 % (43.0-81.0); PLATELET COUNT (AUTO) 207 /CMM (150-450); RDW COEFFICIENT OF VARIATION 18.6 (11.5-15.0); RED BLOOD CELL COUNT(AUTO) 3.55 MIL/uL (4.0-5.2); WHITE BLOOD COUNT (AUTO) 6.2 K/uL (4.3-11.0)
--- NOTE | 2017-09-16 07:34 | NUR ---
SALES ASSOC OPENING NOTES RECEIVED PATIENT AWAKE IN BED WITH DAUGHTER AT BEDSIDE. A/O X 2-3, NO C/O PAIN OR DISCOMFORTS VOICED AT THIS TIME. PT ON SUPPLEMENTAL 02 VIA N/C AT 2LPM, BREATHING EVEN WITH NO SIGNS OF SOB NOTED. ON TELE -MONITORING WITH CURRENT READING OF SINUS RHYTHM AND HR OF 78. IV ACCESS ON RAC INTACT AND PATENT WITH IVF OF NS @ 75ML/HR INFUSING, NO SIGNS OF INFILTRATIONS OR PHLEBITIS AT SITE. HOB ELEVATED. BED LOCKED AND IN LOW POSITION. CALL LIGHT IN REACH. WILL CONTINUE TO MONITOR PT ACCORDINGLY.
[2017-09-16] MEDS: VANCOMYCIN 0.75 GM in IV NS 0.9% 250 ML IV SCH ×2 (07:59→19:57)
[2017-09-16] MEDS: LEVOTHYROXINE SODIUM 50 MCG TABLET PO SCH (07:59)
[2017-09-16 08:00] VITALS: BP 111/55
[2017-09-16] MEDS: FERROUS SULFATE (325 MG) 325 MG/TAB TABLET PO SCH (08:45)
[2017-09-16] MEDS: ANASTROZOLE 1 MG TABLET PO SCH (08:45)
[2017-09-16] MEDS: FOLIC ACID 1 MG TABLET PO SCH (08:45)
[2017-09-16] MEDS: GABAPENTIN 300 MG CAPSULE PO SCH (08:45)
[2017-09-16] MEDS: CAPECITABINE 500 MG PO SCH ×2 (08:45→16:48)
[2017-09-16] MEDS: ONDANSETRON HCL/PF 4 MG/2 ML VIAL IVP PRN (08:53)
[2017-09-16 09:39] LABS: CALCIUM, SERUM 8.7 mg/dL (8.5-10.1); CARBON DIOXIDE 24 mmol/L (21-32); CHLORIDE 108 mmol/L (98-107); CREATININE 0.7 mg/dL (0.6-1.3); GLUCOSE 139 mg/dL (74-106); POTASSIUM 2.9 mmol/L (3.5-5.1); SODIUM SERUM 142 mmol/L (136-145); UREA NITROGEN, BLOOD 5 mg/dL (7-18)
--- NOTE | 2017-09-16 10:00 | NUR ---
RN NOTES PT NOTED WITH LOW LEVEL OF POTASSIUM 2.9, MADE AWARE WITH ORDER TO GIVE K-DUR 60MEQ PO. WILL CARRY OUT ORDER
[2017-09-16] MEDS: POTASSIUM CHLORIDE 20 MEQ TAB.PRT.SR PO SCH ×3 (10:54→14:05)
[2017-09-16 11:09] LABS: ALBUMIN 2.7 g/dL (3.4-5.0); BILIRUBIN,DIRECT 0.1 mg/dL (0.0-0.2); BILIRUBIN,TOTAL 0.6 mg/dL (0.2-1.0); MAGNESIUM 2.4 mg/dL (1.8-2.4); PHOSPHORUS 3.3 mg/dL (2.5-4.9); TOTAL PROTEIN, SERUM 7.2 g/dL (6.4-8.2)
--- NOTE | 2017-09-16 11:18 | NUR ---
1115 RN RAY TO ORDER STAT INR IN ORDER TO PROCEED WITH US GUIDED THORACENTESIS
[2017-09-16 11:29] LABS: INR 1.03 (0.87-1.13)
--- NOTE | 2017-09-16 12:25 | NUR ---
RN NOTES PATIENT S/P U/S GUIDED THORACENTESIS ON RIGHT MIDDLE BACK BY DR CHAMBERS, PT'S DAUGHTER AT BEDSIDE DURING PROCEDURE. OUTPUT WAS 560ML. STAT CHEST X-RAY ORDERED. WILL CONTINUE TO MONITOR.
[2017-09-16] MEDS: IV NS 0.9% 1,000 ML IV PRN (15:38)
[2017-09-16 16:08] VITALS: BP 134/72
--- NOTE | 2017-09-16 18:53 | NUR ---
MS RN CLOSING NOTES PATIENT AWAKE AND RESTING AT MODERATE HIGH BACKREST IN BED. GRAND DAUGHTER AT BEDSIDE. A/O X 3, SAME ABLE TO MAKE NEEDS KNOWN. PT CONTINUES ON 02 VIA N/C AT 2LPM, TOLERATING WELL WITH NO ACUTE RESPIRATORY DISTRESS NOTED. IV ACCESS ON RAC INTACT AND PATENT WITH IVF OF NS @ 75ML/HR INFUSING, NO SIGNS OF INFILTRATIONS OR PHLEBITIS AT SITE NOTED. PT S/P U/S GUIDED THORACENTESIS ON RIGHT MIDDLE BACK, INCISION SITE WITH DRESSING INTACT, CLEAN AND DRY, NO ACTIVE BLEEDING NOTED. HOB KEPT ELEVATED. BED LOCKED AND IN LOW POSITION. CALL LIGHT AND BEDSIDE TABLE KEPT WITHIN PT'S REACH. ALL NEEDS AND CARE ATTENDED WELL. WILL ENDORSED TO HISTOLOGICAL ILLUSTRATOR NURSE FOR BENJA. .
--- NOTE | 2017-09-16 19:20 | NUR ---
RN OPENING NOTE PATIENT RECEIVED UP IN BED, GRAND DAUGHTER AT BEDSIDE. PATIENT IN NO ACUTE DISTRESS, NO SOB, BREATHING EVEN AND UNLABORED, IN NO ACUTE DISTRESS BUT NOTED WITH COUGH. OFFERED COUGH MEDICATION BUT GRAND DAUGHTER VERBALIZED THAT PATIENT DOESN'T WANT TO TAKE COUGH MEDICINE, EXPLAINED RISKS AND BENEFITS X 3 BUT STILL REFUSED AND PREFERS TO HAVE THE BREATHING TX. RESPECTED PT'S DECISION. ALL PATIENT'S NEEDS ATTENDED TO AT THIS TIME. BED PLACED IN LOW POSITION, LOCKED IN PLACE, CALL LIGHT WITHIN EASY REACH. WILL CONTINUE TO MONITOR PT.
[2017-09-16] MEDS: ENOXAPARIN SODIUM 40 MG/0.4 ML DISP.SYRIN SQ SCH (20:59)
--- NOTE | 2017-09-16 21:35 | NUR ---
RN NOTES NOTED PATIENT'S IV PERIPHERAL LINE ON RAC TO BE DISLODGED. INSERTED A NEW IV PERIPHERAL LINE ON RFA G#22, WITH GOOD BLOOD RETURN, FLUSHED WITH 10 CC NS, PATENT AND INTACT. PATIENT TOLERATED PROCEDURE WELL. IVF INFUSING WELL ORDERED. WILL CONTINUE TO MONITOR PT.
[2017-09-16 22:02] VITALS: BP 124/72
[2017-09-16] MEDS: ZOLPIDEM TARTRATE 5 MG TABLET PO PRN (22:58)
[2017-09-17] MEDS: IPRATROPIUM NEB FS 0.5 MG/2.5 ML AMPUL.NEB NEB SCH ×7 (00:14→23:02)
[2017-09-17] MEDS: ALBUTEROL FS 2.5 MG/0.5 ML VIAL.NEB NEB SCH ×7 (00:14→23:02)
[2017-09-17] MEDS: ZOSYN IVPB 3.375 G in IV D5W 50ml IV SCH ×4 (02:48→21:10)
[2017-09-17] MEDS: GUAIFENESIN/D-METHORPHAN HB 5 ML UDC PO PRN ×2 (04:54→11:01)
--- NOTE | 2017-09-17 07:25 | NUR ---
RN CLOSING NOTES PATIENT IN BED, ASLEEP BUT EASILY AROUSABLE, NOTED WITH NO SOB, CONTINUES TO RECEIVE O2 @2LPM VIA NC, IN NO ACUTE DISTRESS. NOTED WITH EPISODES OF COUGH WITHIN THE SHIFT AND MEDICATION GIVEN ORDERED. CALL LIGHT WITHIN EASY REACH, BED IN LOW POSITION AND LOCKED IN PLACE. PT CONTINUES TO RECEIVE IVF ORDERED VIA IVP ON RFA #22. WILL ENDORSE TO AM SHIFT NURSE FOR CONTINUITY OF CARE.
[2017-09-17 07:28] LABS: CALCIUM, SERUM 8.7 mg/dL (8.5-10.1); CARBON DIOXIDE 26 mmol/L (21-32); CHLORIDE 109 mmol/L (98-107); CREATININE 0.6 mg/dL (0.6-1.3); GLUCOSE 104 mg/dL (74-106); POTASSIUM 3.1 mmol/L (3.5-5.1); SODIUM SERUM 142 mmol/L (136-145); UREA NITROGEN, BLOOD 2 mg/dL (7-18)
--- NOTE | 2017-09-17 07:48 | NUR ---
MS RN OPENING NOTES PATIENT IS RESTING IN NO APPARENT DISTRESS. FAMILY IS AT THE BEDSIDE. BEDSIDE RAILS ARE UPX2. BED IS LOCKED AND LOWERED. CALL LIGHT IS WITHIN REACH. IV LINE IS PATENT AND INTACT. WILL CONTINUE TO MONITOR.
[2017-09-17] MEDS: VANCOMYCIN 0.75 GM in IV NS 0.9% 250 ML IV SCH (07:57)
[2017-09-17] MEDS: LEVOTHYROXINE SODIUM 50 MCG TABLET PO SCH (07:58)
[2017-09-17 08:00] VITALS: BP 125/65
[2017-09-17] MEDS: FERROUS SULFATE (325 MG) 325 MG/TAB TABLET PO SCH (08:01)
[2017-09-17] MEDS: FOLIC ACID 1 MG TABLET PO SCH (08:02)
[2017-09-17] MEDS: ANASTROZOLE 1 MG TABLET PO SCH (08:02)
[2017-09-17] MEDS: GABAPENTIN 300 MG CAPSULE PO SCH (08:02)
[2017-09-17] MEDS: CAPECITABINE 500 MG PO SCH ×2 (08:03→16:18)
[2017-09-17] MEDS: ONDANSETRON HCL/PF 4 MG/2 ML VIAL IVP PRN (08:09)
[2017-09-17] MEDS: POTASSIUM CHLORIDE 20 MEQ TAB.PRT.SR PO SCH (10:01)
[2017-09-17 16:00] VITALS: BP 122/65
[2017-09-17] MEDS: VANCOMYCIN 0.75 GM in IV D5W 250 ML IV SCH (17:15)
--- NOTE | 2017-09-17 18:42 | NUR ---
MS RN CLOSING NOTES PATIENT IN STABLE CONDITION. IN NO APPARENT DISTRESS. BEDSIDE RAILS ARE UPX2. BED IS LOCKED AND LOWERED. ALL NEEDS WERE MET. CALL LIGHT IS WITHIN REACH. WILL ENDORSE CARE TO WARNING ANALYST NURSE FOR BENJA.
--- NOTE | 2017-09-17 19:30 | NUR ---
MS/RN RECEIVE PATIENT IN BED COMFORTABLE, NO C/O PAIN, NO DISTRESS NOTED, CALL LIGHT IN REACH. WILL MONITOR.
[2017-09-17 20:00] VITALS: BP 123/62
[2017-09-17] MEDS: IV NS 0.9% 1,000 ML IV PRN (20:36)
[2017-09-17] MEDS: HYDROCODONE/APAP 5/325MG 1 EACH TABLET PO PRN (21:18)
[2017-09-17] MEDS: ENOXAPARIN SODIUM 40 MG/0.4 ML DISP.SYRIN SQ SCH (21:19)
[2017-09-17] MEDS ORDERED: ATORVASTATIN 10 MG TABLET PO SCH (22:00)
[2017-09-18] MEDS: VANCOMYCIN 0.75 GM in IV D5W 250 ML IV SCH ×2 (01:12→10:14)
[2017-09-18] MEDS: IPRATROPIUM NEB FS 0.5 MG/2.5 ML AMPUL.NEB NEB SCH ×4 (02:42→15:19)
[2017-09-18] MEDS: ALBUTEROL FS 2.5 MG/0.5 ML VIAL.NEB NEB SCH ×4 (02:42→15:19)
[2017-09-18] MEDS: HYDROCODONE/APAP 5/325MG 1 EACH TABLET PO PRN (02:48)
[2017-09-18] MEDS: ZOSYN IVPB 3.375 G in IV D5W 50ml IV SCH ×3 (02:48→14:12)
--- NOTE | 2017-09-18 06:36 | NUR ---
MS/RN PATIENT IS AWAKE, C/O PAIN IN CHEST WALL DUE TO COUGHING, 02/14, MEDICATED WITH NORCO 10 MG PO WAS ORDERED. ALL NEEDS ATTENDED AT THIS TIME. WILL CONTINUE TO MONITOR.
--- NOTE | 2017-09-18 07:05 | NUR ---
MS RN NOTES RECEIVED PATIENT IN BED ALERT ORIENTED X 3. FAMILY AT BEDSIDE. NO ACUTE DISTRESS NOTED. BREATHING UNLABORED. IV ACCESS PATENT AND INTACT. SAFETY MEASURES IN PLACE. CALL LIGHT WITHIN REACH. WILL CONTINUE TO MONITOR ACCORDINGLY.
[2017-09-18] MEDS: LEVOTHYROXINE SODIUM 50 MCG TABLET PO SCH (07:58)
[2017-09-18 08:00] VITALS: BP 107/63
[2017-09-18 08:25] LABS: CALCIUM, SERUM 8.5 mg/dL (8.5-10.1); CARBON DIOXIDE 24 mmol/L (21-32); CHLORIDE 108 mmol/L (98-107); CREATININE 0.9 mg/dL (0.6-1.3); GLUCOSE 101 mg/dL (74-106); POTASSIUM 3.2 mmol/L (3.5-5.1); SODIUM SERUM 142 mmol/L (136-145); UREA NITROGEN, BLOOD 2 mg/dL (7-18)
[2017-09-18] MEDS: ANASTROZOLE 1 MG TABLET PO SCH (09:09)
[2017-09-18] MEDS: GABAPENTIN 300 MG CAPSULE PO SCH (09:09)
[2017-09-18] MEDS: FERROUS SULFATE (325 MG) 325 MG/TAB TABLET PO SCH (09:09)
[2017-09-18] MEDS: FOLIC ACID 1 MG TABLET PO SCH (09:09)
[2017-09-18] MEDS: CAPECITABINE 500 MG PO SCH (09:30)
--- NOTE | 2017-09-18 09:30 | NUR ---
MS RN NOTES Asked daughter for home medication capecitabine per daughter primary doctor ordered to stop medication for [address] Lopez made aware.
--- NOTE | 2017-09-18 09:35 | NUR ---
MS RN NOTES SEEN AND EVALUATED BY DR KENNEDY WITH NEW ORDERS MADE. NOTED AND CARRIED OUT.
[2017-09-18] MEDS: POTASSIUM CHLORIDE 20 MEQ TAB.PRT.SR PO SCH ×2 (10:16→11:51)
--- NOTE | 2017-09-18 12:50 | NUR ---
MS RN NOTES SEEN AND EVALUATED BY DR PONCE.
--- NOTE | 2017-09-18 14:30 | NUR ---
MS RN NOTES SEEN AND EVALUATED BY DR UP.
--- NOTE | 2017-09-18 15:45 | NUR ---
MS APPLICATIONS ARCHITECT NOTES PATIENT DISCHARGED HOME WITH STABLE VITAL SIGN . NO ACUTE DISTESS NOTED. NO SOB NOTED. DISCHARGE INSTRUCTIONS GIVEN TO THE DAUGHTER INCLUDING FOLLOW UP APPOINTMENT AND NEW PRESCRIPTION, VERBALIZED UNDERSTANDING. ALL BELONGINGS ACCOUNTED FOR. IV ACCESS REMOVED, NO BLEEDING OR REDNESS NOTED. WHEELED TO THE LOBBY ACCOMPANIED BY DAUGHTER ASSISTED TO A PRIVATE CAR.
[2017-09-18] MEDS ORDERED: VANCOMYCIN 1 GM in IV D5W 250 ML IV SCH (21:00)
== END 2017-09-18 15:45 | disposition home or self-care (01) | DRG 597 ==
LOC: ER 14:13 → TELE 16:21 → MED 09-16 08:33
PROVIDERS: ADMIT Internal Medicine; ATTEND Internal Medicine
PROC: 0W993ZZ Drainage of Right Pleural Cavity, Percutaneous Approach (ICD-10-PCS; principal; 2017-09-16)
DX: C50.912 Malignant neoplasm of unspecified site of left female breast (principal); J18.9 Pneumonia, unspecified organism; J96.01 Acute respiratory failure with hypoxia; J91.0 Malignant pleural effusion; D64.9 Anemia, unspecified; J98.11 Atelectasis; E78.5 Hyperlipidemia, unspecified; E87.6 Hypokalemia; K21.9 Gastro-esophageal reflux disease without esophagitis; Z87.891 Personal history of nicotine dependence; Z90.12 Acquired absence of left breast and nipple; Z79.899 Other long term (current) drug therapy
CPT/HCPCS: 36415; 71045-TC; 71260-TC; 76942-TC; 80048-TC; 80061-TC; 80076-TC; 80202-TC; 83735-TC; 83880; 84100-TC; 84484-TC; 85025-TC; 85610-TC; 87040-TC; 87081-TC; 94799-TC; A4216; A4606; J1650; J1956; J2405; J2543; J3370; J7030; J7050; J7060; Q9967; Z7610

== ENCOUNTER 2017-09-23 13:46 | Outpatient (CLI) | payer MEDICARE, OTHER ==
[~2017-09-23 13:46] MED LIST changes: +ANAS1TAB8 PO; +CAPE500T15 PO; +FERR325T23 PO; +FOLI1TAB16 PO; +GABA-534 PO; -LEVO500T75 PO; +LORA1TAB PO
[2017-09-23 14:01] VITALS: BP 114/57
== END 2017-09-23 23:59 | disposition home or self-care (01) ==
LOC: MSC 13:46
PROVIDERS: ATTEND Internal Medicine
DX: J18.9 Pneumonia, unspecified organism (principal); C50.912 Malignant neoplasm of unspecified site of left female breast; J96.11 Chronic respiratory failure with hypoxia; D64.9 Anemia, unspecified; E03.9 Hypothyroidism, unspecified; G89.29 Other chronic pain; N39.9 Disorder of urinary system, unspecified

== ENCOUNTER 2017-09-26 18:06 | Inpatient (IN) | payer MEDICARE, OTHER ==
[~2017-09-26] VITALS: Ht 160 cm; Wt 48.5 kg
--- NOTE | 2017-09-26 18:06 | NUR ---
[id number] FROM HOME FOR SOB STARTED TODAY. SPO2-90% RA IN THE FIELD. PT PLACED NOW ON 3L N/C WITH 99% O2 SATURATION. NAD NOTED. PT AAO X4, AMB WITH STEADY GAIT. RR EVEN AND UNLABORED AT THIS TIME. PENDING MD LENNON .
[2017-09-26] MEDS ORDERED: IV NS 0.9% 1,000 ML BAG IV ONE (18:30)
[2017-09-26 18:34] LABS: BASOPHILS % (AUTO) 0.4 % (0.0-2.0); EOSINOPHILS % (AUTO) 2.8 % (0.0-6.0); HEMATOCRIT 31 % (33-45); HEMOGLOBIN 10.2 g/dL (11.5-14.8); LYMPHOCYTES # (AUTO) 1.9 /CMM (0.8-4.8); MEAN CORPUSCULAR HGB CONC 33 g/dl (31.0-36.0); MEAN CORPUSCULAR VOLUME 82 fL (82-100); MONOCYTES # (AUTO) 0.7 /CMM (0.1-1.30); NEUTROPHILS # (AUTO) 3.8 /CMM (1.8-8.9); NEUTROPHILS % (AUTO) 57.8 % (43.0-81.0); PLATELET COUNT (AUTO) 307 /CMM (150-450); RDW COEFFICIENT OF VARIATION 17.5 (11.5-15.0); RED BLOOD CELL COUNT(AUTO) 3.74 MIL/uL (4.0-5.2); WHITE BLOOD COUNT (AUTO) 6.6 K/uL (4.3-11.0)
[2017-09-26 18:50] LABS: INR 1.06 (0.87-1.13)
[2017-09-26 18:51] LABS: ALANINE AMINOTRANSFERASE 11 U/L (12-78); ALBUMIN 2.4 g/dL (3.4-5.0); ALKALINE PHOSPHATASE 70 U/L (46-116); ASPARTATE AMINOTRANSFERASE 22 U/L (15-37); BILIRUBIN,DIRECT 0.2 mg/dL (0.0-0.2); BILIRUBIN,TOTAL 0.4 mg/dL (0.2-1.0); CALCIUM, SERUM 8.8 mg/dL (8.5-10.1); CARBON DIOXIDE 31 mmol/L (21-32); CHLORIDE 105 mmol/L (98-107); CREATININE 0.8 mg/dL (0.6-1.3); GLUCOSE 119 mg/dL (74-106); SODIUM SERUM 141 mmol/L (136-145); TOTAL PROTEIN, SERUM 7.2 g/dL (6.4-8.2); UREA NITROGEN, BLOOD 6 mg/dL (7-18)
[2017-09-26 18:53] LABS: POTASSIUM 2.6 mmol/L (3.5-5.1); TROPONIN I < 0.017 ng/mL (0.00-0.056)
[2017-09-26 19:08] LABS: APPEARANCE,URINE Clear (CLEAR); BILIRUBIN,URINE Negative (NEGATIVE); BLOOD, URINE Negative Ery/uL (NEGATIVE); COLOR,URINE Yellow (YELLOW); KETONES,URINE Negative (NEGATIVE); LEUKOCYTE ESTERASE ,URINE Negative (NEGATIVE); NITRITE, URINE Negative (NEGATIVE); PROTEIN,URINE Negative (NEGATIVE); UGLUCOSE Negative (NEGATIVE); UROBILINOGEN,URINE 0.2 EU/dL (0.2)
--- NOTE | 2017-09-26 19:22 | NUR ---
PATIENT RESTING IN BED, AAOX4. NAD NOTED. BREATHING EVEN AND UNLABORED. SATTING AT 99% AT THIS TIME ON 3LPM NC. WILL CONTINUE TO MONITOR.
[2017-09-26] MEDS ORDERED: POTASSIUM CHLORIDE 20 MEQ POWDER PACKET ONE (19:28)
[2017-09-26] MEDS ORDERED: Magnesium 1GM/D5W 100ML PREMIX 100 ML IV ONE (19:28)
[2017-09-26] MEDS ORDERED: POTASSIUM CHLORIDE 20 MEQ TAB.PRT.SR PO ONE (19:30)
[2017-09-26] MEDS ORDERED: POTASSIUM CHLORIDE 20 MEQ POWDER PACKET PO ONE (19:30)
[2017-09-26] MEDS ORDERED: Magnesium 1GM/D5W 100ML PREMIX 100 ML IV SCH (19:30)
[2017-09-26] MEDS ORDERED: ONDANSETRON HCL/PF 4 MG/2 ML VIAL ONE (19:41)
[2017-09-26] MEDS ORDERED: VANCOMYCIN 1 GM VIAL ONE (19:57)
--- NOTE | 2017-09-26 19:58 | NUR ---
CALLED NURSING SUP. FOR TELE BED
[2017-09-26] MEDS ORDERED: CEFEPIME 1 GM in IV D5W 50 ML IV ONE (20:00)
[2017-09-26] MEDS ORDERED: VANCOMYCIN 1 GM in IV D5W 250 ML IV ONE (20:00)
[2017-09-26] MEDS ORDERED: ONDANSETRON HCL/PF 4 MG/2 ML VIAL IV ONE (20:00)
--- NOTE | 2017-09-26 20:02 | NUR ---
TELE 309-2
--- NOTE | 2017-09-26 20:32 | NUR ---
REPORT GIVEN TO MEGHNA MENCHACA FOR ADMISSION AND BENJA.
--- NOTE | 2017-09-26 20:35 | NUR ---
REPORT RECEIVED FOR PATIENT FROM CHEMISTRY MANAGER CHINTAN. WILL ADMIT TO TELEMETRY UNIT ONCE TRANSFERRED FROM ED.
--- NOTE | 2017-09-26 20:50 | NUR ---
OCEAN FISHING GUIDE OPENING NOTE RECEIVED PATIENT IN STABLE CONDITION. BROUGHT TO THE UNITE ON A GURNEY. PATIENT IS ALERT ORIENTED X3, DAUGHTER WITH HER AT BEDSIDE. PATIENT WITH SOB, REPORTS HAVING HEAVINESS WHILE BREATHING. VIALS SIGNS TAKEN AND RECORDED: BP: 139/74, HR: 79, RESP: 18, O2 SAT: 97% ON 3 L OF O2, TEMP: 97.6. IN NO APPARENT / SEVERE DISTRESS OR DISCOMFORT. RESPIRATIONS EVEN, SLIGHTLY LABORED. DENIES PAIN AT THIS TIME. PATIENT HAS RIGHT FA IVC 18G WITH VANCOMYCIN, MAGNESIUM AND 0.9% NS RUNNING. THE NURSE REPORTED INFUSIONS STARTED A WHILE AGO AND THEY ARE ABOUT TO FINISH. SKIN IS INTACT. LEFT UPPER CHEST PORTACATH IN PLACE FOR CHEMOTHERAPY. INTACT. PATIENT WITH BREAST CA AND LEFT BREAST MASTECTOMY, S/P CHEMOTHERAPY 2 WEEKS AGO ACCORDING TO THE DAUGHTER. PATIENT PLACED ON TELE MONITORING. MADE COMFORTABLE IN BED. ALL BELONGINGS ARE WITH THE DAUGHTER. SAFETY MEASURES APPLIED. BED IN LOW LOCKED POSITION, SIDE RAILS UP X2, CALL LIGHT WITHIN EASY REACH. WILL CONTINUE TO MONITOR AND CARRY OUT ADMISSION ORDERS.
--- NOTE | 2017-09-26 20:50 | NUR ---
TRANSFERRED PATIENT TO TELE BED 304-2 VIA ALS PROTOCOL, NO INCIDENT NOTED. ENDORSED AT BEDSIDE TO MEGHNA MENCHACA CEFEPIME 1G TO BE GIVEN.
[2017-09-26 21:00] VITALS: BP 139/74
--- NOTE | 2017-09-26 21:00 | NUR ---
MEDICATION MAXIPIME 1G, WAS SUPPOSE TO BE ADMINISTERED IN THE ER. REPORT RECEIVED THAT DUE TO ITS INCOMPATIBILITY WITH MAGNESIUM AND VANCOMYCIN DOSE WAS HELD IN THE ER TO BE ADMINISTERED IN THE TELE UNIT AFTER TRANSFER. WILL REPORT TO MD AND OBTAIN AN ORDER BEFORE ADMINISTERING.
[2017-09-26] MEDS ORDERED: MAGNESIUM HYDROXIDE 30 ML UDC PO PRN (22:00)
[2017-09-26] MEDS ORDERED: MAG HYDROX/AL HYDROX/SIMETH 30 ML UDC PO PRN (22:00)
[2017-09-26] MEDS ORDERED: ACETAMINOPHEN 325 MG TABLET PO PRN (22:00)
[2017-09-26] MEDS ORDERED: ZOLPIDEM TARTRATE 5 MG TABLET PO PRN (22:00)
[2017-09-26] MEDS ORDERED: ONDANSETRON HCL/PF 4 MG/2 ML VIAL IVP PRN (22:00)
[2017-09-26] MEDS ORDERED: Z GUARD REMEDY 2 OZ OINT TP PRN (22:00)
[2017-09-26] MEDS: ENOXAPARIN SODIUM 40 MG/0.4 ML DISP.SYRIN SQ SCH (22:26)
[2017-09-26] MEDS: IPRATROPIUM NEB FS 0.5 MG/2.5 ML AMPUL.NEB NEB SCH (22:38)
[2017-09-26] MEDS: ALBUTEROL FS 2.5 MG/0.5 ML VIAL.NEB NEB SCH (22:38)
--- NOTE | 2017-09-26 23:00 | NUR ---
DR. KENNEDY AT BEDSIDE. ASSESSED THE PATIENT. ORDER RECEIVED FOR CONTINUOUS PULSOX MONITOR OVERNIGHT TO KEEP O2 ABOVE 94%. REPLACE POTASSIUM WITH 60mEq K IVPB 10mEq/hr, REPLACE MG WITH 2G Mg IVPB 1G/hr. WILL CARRY OUT ORDERS DIRECTED.
--- NOTE | 2017-09-26 23:05 | NUR ---
ORDER RECEIVED FROM DR KENNEDY TO HOLD MAXIPIME UNTIL CXR IS REVIEWED BY HIM. WILL CONTINUE TO MONITOR.
[2017-09-26] MEDS ORDERED: Magnesium 1 GM/2 ML VIAL IV ONE (23:30)
[2017-09-27] VITALS: BP_SYST 125; BP_SYST 139; BP_DIAS 66; BP_DIAS 74
[2017-09-27] MEDS ORDERED: POTASSIUM CL. PREMIX PERIPHER. 300 ML ONE (00:13)
[2017-09-27] MEDS: POTASSIUM CL. PREMIX PERIPHER. 50 ML IV SCH ×6 (00:21→08:55)
[2017-09-27] MEDS ORDERED: Magnesium 1GM/D5W 100ML PREMIX 100 ML IV SCH (02:30)
[2017-09-27] MEDS: ALBUTEROL FS 2.5 MG/0.5 ML VIAL.NEB NEB SCH ×6 (02:52→23:22)
[2017-09-27] MEDS: IPRATROPIUM NEB FS 0.5 MG/2.5 ML AMPUL.NEB NEB SCH ×6 (02:52→23:22)
--- NOTE | 2017-09-27 03:15 | NUR ---
PATIENT REPORTS HAVING NAUSEA, NO VOMITING PRESENT. ZOFRAN IV PRN ADMINISTERED, WILL REASSESS FOR EFFECTIVENESS AND CONTINUE TO MONITOR
[2017-09-27 04:00] VITALS: BP 133/65
[2017-09-27] MEDS ORDERED: Magnesium 1GM/D5W 100ML PREMIX PIGGYBACK IV ONE ×2 (05:00)
--- NOTE | 2017-09-27 07:05 | NUR ---
RN NOTES PT IS LAYING DOWN IN BED, AWAKE AND ALERT WITH DAUGHTER AT BEDSIDE. PT ON 3L NC, RESPIRATIONS ARE EVEN AND UNLABORED. IV ON RFA INTACT AND RUNNING NS AND POTASSIUM. NO SIGNS OF DISTRESS NOTED. SAFETY MEASURES ARE IN PLACE, CALL LIGHT IS IN REACH. WILL CONTINUE TO MONITOR.
[2017-09-27 07:11] LABS: ALANINE AMINOTRANSFERASE 14 U/L (12-78); ALBUMIN 2.5 g/dL (3.4-5.0); ALKALINE PHOSPHATASE 77 U/L (46-116); ASPARTATE AMINOTRANSFERASE 21 U/L (15-37); BILIRUBIN,TOTAL 0.5 mg/dL (0.2-1.0); CALCIUM, SERUM 8.7 mg/dL (8.5-10.1); CARBON DIOXIDE 26 mmol/L (21-32); CHLORIDE 108 mmol/L (98-107); CREATININE 0.7 mg/dL (0.6-1.3); GLUCOSE 100 mg/dL (74-106); MAGNESIUM 2.6 mg/dL (1.8-2.4); PHOSPHORUS 2.2 mg/dL (2.5-4.9); POTASSIUM 3.8 mmol/L (3.5-5.1); SODIUM SERUM 141 mmol/L (136-145); UREA NITROGEN, BLOOD 3 mg/dL (7-18)
[2017-09-27 07:12] LABS: CHOLESTEROL 118 mg/dL (<200); HDL CHOLESTEROL 42 mg/dL (40-60); LDL 75 mg/dL (0-99); TRIGLYCERIDES 98 mg/dL (30-150)
--- NOTE | 2017-09-27 07:25 | NUR ---
PHARMACY INTAKE COORDINATOR CLOSING NOTE PATIENT IN STABLE CONDITION, SITTING IN BED, ALERT ORIENTED X3, DAUGHTER AT BEDSIDE THROUGHOUT THE NIGHT. PATIENT STILL HAS SLIGHT LABORED BREATHING. CONTINUOUS PULSOX MONITOR WAS PLACED DURING THE NIGHT, SATURATION REMAINED ABOVE 94% AT ALL TIMES WITH 3L O2 VIA NC. IN NO APPARENT / SEVERE DISTRESS OR DISCOMFORT AT THIS TIME. RESPIRATIONS EVEN, DENIES PAIN AT THIS TIME. PATIENT HAS RIGHT FA IVC 18G WITH POTASSIUM 10mEq AND 0.9% NS RUNNING AT THIS TIME, NO SIGN OF INFILTRATION. 4/6 DOSES OF IV POTASSIUM GIVEN THROUGHOUT THE NIGHT, TOLERATED WILL. LEFT UPPER CHEST PORTACATH IN PLACE FOR CHEMOTHERAPY INTACT. PATIENT ON TELE MONITORING WITH SR AND HR OF 85. PATIENT KEPT CLEAN AND COMFORTABLE, ABLE TO AMBULATE TO THE BATHROOM WITH ASSISTANCE OF THE DAUGHTER AND USE OF WALKER. SAFETY MEASURES APPLIED. BED IN LOW LOCKED POSITION, SIDE RAILS UP X2, CALL LIGHT WITHIN EASY REACH. WILL ENDORSE TO AM NURSE FOR BENJA.
[2017-09-27 07:44] LABS: BASOPHILS # (AUTO) 0.1 /CMM (0.0-0.2); EOSINOPHILS % (AUTO) 1.4 % (0.0-6.0); HEMATOCRIT 29 % (33-45); HEMOGLOBIN 9.8 g/dL (11.5-14.8); LYMPHOCYTES # (AUTO) 1.7 /CMM (0.8-4.8); MEAN CORPUSCULAR HGB CONC 33 g/dl (31.0-36.0); MEAN CORPUSCULAR VOLUME 83 fL (82-100); MONOCYTES # (AUTO) 0.7 /CMM (0.1-1.30); MONOCYTES % (AUTO) 9.9 % (2.0-12.0); NEUTROPHILS # (AUTO) 4.6 /CMM (1.8-8.9); NEUTROPHILS % (AUTO) 64.7 % (43.0-81.0); PLATELET COUNT (AUTO) 295 /CMM (150-450); RDW COEFFICIENT OF VARIATION 17.8 (11.5-15.0); RED BLOOD CELL COUNT(AUTO) 3.52 MIL/uL (4.0-5.2); WHITE BLOOD COUNT (AUTO) 7.2 K/uL (4.3-11.0)
[2017-09-27 08:00] VITALS: BP 159/79
--- NOTE | 2017-09-27 09:00 | NUR ---
RN NOTES SPOKE WITH ESTER FARR REGARDING POTASSIUM DOSE. POTASSIUM LEVEL CAME BACK 3.8 AFTER 3 BAGS GIVEN DURING SOCIAL MEDIA SPECIALIST. TWO MORE BAGS OF 10 MEQ HAD BEEN GIVEN BEFORE RESULT CAME BACK NORMAL. ESTER CONFIRMED SHE STILL WANTED THE LAST BAG TO BE GIVEN.
[2017-09-27 10:03] LABS: INR 1.01 (0.87-1.13)
[2017-09-27] MEDS ORDERED: MENTHOL/CETYLPYRD (CEPACOL) 1 LOZ LOZENGE PO PRN (10:30)
--- NOTE | 2017-09-27 11:24 | NUR ---
RN NOTES US GUIDED THORACENTESIS WAS DONE, 900ML REMOVED. STAT CHEST XR ORDERED
[2017-09-27] MEDS ORDERED: K PHOS NEUTRAL 250 MG TABLET PO ONE (11:30)
[2017-09-27] MEDS: GUAIFENESIN/CODEINE 10 ML UDC PO PRN ×2 (11:51→20:56)
[2017-09-27 14:06] LABS: ABG OXYGEN SATURATION 95.3 % (92.0-98.5); ABG PCO2 38.6 mmHg (35.0-45.0); ABG PH 7.461 (7.350-7.450); ABG PO2 80.7 mmHg (75.0-100.0); AaDO2 73.4 mmHg; COHb 0.7 % (0.5-1.5); MetHb 0.5 % (0.0-1.5); O2Hb 94.2 % (94.0-97.0); SITE, ABG Right Brachial; VENT MODE, BG NC 2L
[2017-09-27] MEDS: HYDROCODONE/APAP 5/325MG 1 EACH TABLET PO PRN ×2 (14:55→20:56)
[2017-09-27 16:00] VITALS: BP 136/56
[2017-09-27] MEDS: MEGESTROL ACETATE 40 MG TABLET PO SCH (16:12)
[2017-09-27] MEDS ORDERED: BOOST PLUS FOOD-VANILLA 237 ML BOX PO SCH (17:00)
[2017-09-27] MEDS: PIPERACILLIN /TAZOBACTAM 3.375 G in IV NS 0.9% 50 ML IV SCH (17:09)
--- NOTE | 2017-09-27 18:30 | NUR ---
RN NOTES PT IS SITTING UP IN BED, AWAKE AND ALERT, RESTING COMFORTABLY. PT ON 3L O2, RESPIRATIONS ARE EVEN AND UNLABORED. IV ON RFA INTACT AND RUNNING NS @ 75ML/HR. ALL MEDS WERE GIVEN ORDERED AND PT NEEDS MET. NO SIGNS OF DISTRESS NOTED. SAFETY MEASURES ARE IN PLACE, CALL LIGHT IS IN REACH. WILL ENDORSE TO TUBE CARRIER RN FOR CONTINUITY OF CARE.
[2017-09-27] MEDS ORDERED: IV NS 0.9% 250 ML IV ONE (19:19)
[2017-09-27] MEDS ORDERED: IOHEXOL-300 100 ML VIAL IV ONE (19:19)
[2017-09-27] MEDS ORDERED: CT SWABBABLE VALVE TRANS SET 1 EA INFUS.SET MC ONE (19:19)
--- NOTE | 2017-09-27 19:45 | NUR ---
MS RN NOTE: PATIENT OFF THE FLOOR IN WHEELCHAIR WITH DAUGHTER FOR CT OF ABDOMEN, NO ACUTE DISTRESS NOTED.
[2017-09-27 19:56] VITALS: BP 114/57
--- NOTE | 2017-09-27 20:15 | NUR ---
MS RN NOTE: PATIENT BACK IN BED FROM CT OF ABDOMEN WITH NO ACUTE DISTRESS NOTED, FAMILY AT BEDSIDE BREATHING EVEN AND UNLABORED, NO SOB NOTED. IV TO RFA IN PLACE. BED LOCKED AND IN LOWEST POSITION, CALL LIGHT IN REACH. WILL CONTINUE TO MONITOR.
--- NOTE | 2017-09-27 21:00 | NUR ---
MS RN NOTE: PATIENT/FAMILY REQUESTING FOR COUGHING MEDICATION AND PAIN MEDICATION. ROBITUSSIN AC 10 ML GIVEN PER MD ORDER AND NORCO 5/325MG 1 TAB ORAL GIVEN PER MD ORDER. WILL CONTINUE TO MONITOR.
[2017-09-27] MEDS: ENOXAPARIN SODIUM 40 MG/0.4 ML DISP.SYRIN SQ SCH (21:01)
--- NOTE | 2017-09-27 22:14 | NUR ---
MS RN NOTE: REPORT GIVEN TO NIKOLAI DESAI FOR CONTINUATION OF CARE. PATIENT RESTING IN BED, WITH FAMILY AT BEDSIDE.
[2017-09-28] MEDS: ALBUTEROL FS 2.5 MG/0.5 ML VIAL.NEB NEB SCH ×5 (03:17→20:03)
[2017-09-28] MEDS: IPRATROPIUM NEB FS 0.5 MG/2.5 ML AMPUL.NEB NEB SCH ×5 (03:17→20:03)
[2017-09-28 06:25] LABS: BASOPHILS % (AUTO) 0.2 % (0.0-2.0); EOSINOPHILS % (AUTO) 1.1 % (0.0-6.0); HEMATOCRIT 24 % (33-45); HEMOGLOBIN 7.8 g/dL (11.5-14.8); LYMPHOCYTES # (AUTO) 1.4 /CMM (0.8-4.8); MEAN CORPUSCULAR HGB CONC 32 g/dl (31.0-36.0); MEAN CORPUSCULAR VOLUME 84 fL (82-100); MONOCYTES # (AUTO) 0.6 /CMM (0.1-1.30); MONOCYTES % (AUTO) 11.1 % (2.0-12.0); NEUTROPHILS # (AUTO) 3.6 /CMM (1.8-8.9); NEUTROPHILS % (AUTO) 63.6 % (43.0-81.0); PLATELET COUNT (AUTO) 219 /CMM (150-450); RED BLOOD CELL COUNT(AUTO) 2.87 MIL/uL (4.0-5.2); WHITE BLOOD COUNT (AUTO) 5.7 K/uL (4.3-11.0)
--- NOTE | 2017-09-28 06:29 | NUR ---
MS RN NOTE PATIENT SLEEPING AT THIS TIME. NO S/S OF DISTRESS NOTED. ALL NEEDS MET AND ATTENDED TO. WILL ENDORSE TO DAY SHIFT FOR BENJA.
[2017-09-28 06:40] LABS: CALCIUM, SERUM 7.5 mg/dL (8.5-10.1); CARBON DIOXIDE 24 mmol/L (21-32); CHLORIDE 110 mmol/L (98-107); CREATININE 0.7 mg/dL (0.6-1.3); GLUCOSE 99 mg/dL (74-106); MAGNESIUM 1.8 mg/dL (1.8-2.4); PHOSPHORUS 2.8 mg/dL (2.5-4.9); SODIUM SERUM 143 mmol/L (136-145); UREA NITROGEN, BLOOD 4 mg/dL (7-18)
[2017-09-28 06:42] LABS: POTASSIUM 2.7 mmol/L (3.5-5.1)
[2017-09-28] MEDS: PIPERACILLIN /TAZOBACTAM 3.375 G in IV NS 0.9% 50 ML IV SCH ×6 (06:55→23:21)
--- NOTE | 2017-09-28 07:20 | NUR ---
RN NOTES PATIENT RECEIVED, RESTING COMFORTABLY IN BED SLEEPING, EASILY AROUSABLE DURING CARE, ABLE TO MAKE NEEDS KNOWN. RESPIRATIONS EVEN AND UNLABORED, IN NO APPARENT PAIN OR DISCOMFORT. IV ACCESS TO RFA 18G PATENT AND INTACT, NO REDNESS OR INFILTRATION NOTED. FAMILY AT BEDSIDE WILL CONTINUE TO MONITOR
[2017-09-28 08:00] VITALS: BP 120/58
[2017-09-28] MEDS: ENSURE ENLIVE 237 ML LIQUID (VANILLA) PO SCH ×2 (08:00→16:45)
[2017-09-28] MEDS: MEGESTROL ACETATE 40 MG TABLET PO SCH ×2 (08:25→16:44)
--- NOTE | 2017-09-28 11:35 | NUR ---
RN NOTES PATIENT WITH ORDERS FOR 200MLS OF POTASSIUM TOTAL PHARMACY MADE AWARE, PHARMACY TO DELIVER WILL CONTINUE TO MONITOR AND ADMINISTER ORDERED
--- NOTE | 2017-09-28 12:11 | NUR ---
RN NOTES AWAITING ARRIVAL OF POTASSIUM CHLORIDE FOR ADMINISTRATION WILL CONTINUE TO MONITOR
[2017-09-28] MEDS: POTASSIUM CL. PREMIX PERIPHER. 50 ML IV SCH ×4 (12:36→16:44)
--- NOTE | 2017-09-28 15:10 | NUR ---
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
[2017-09-28] MEDS: IV NS 0.9% 1,000 ML IV PRN (15:12)
[2017-09-28 16:00] VITALS: BP 141/66
[2017-09-28 16:38] LABS: HEMOGLOBIN 9.2 g/dL (11.5-14.8)
[2017-09-28 18:18] LABS: OCCULT BLOOD STOOL NEGATIVE (NEGATIVE)
--- NOTE | 2017-09-28 19:12 | NUR ---
RN CLOSING NOTES PATIENT RESTING COMFORTABLY IN BED SLEEPING, EASILY AROUSABLE DURING CARE, ABLE TO MAKE NEEDS KNOWN. RESPIRATIONS EVEN AND UNLABORED, IN NO APPARENT PAIN OR DISCOMFORT. IV ACCESS TO RFA 18G PATENT AND INTACT, NO REDNESS OR INFILTRATION NOTED. SAFETY MEASURES IN PLACE, CALL LIGHT WITHIN EASY REACH, FAMILY AT BEDSIDE WILL CONTINUE TO MONITOR
--- NOTE | 2017-09-28 19:30 | NUR ---
MS RN NOTE: PATIENT RESTING IN BED, NO ACUTE DISTRESS NOTED, FAMILY AT BEDSIDE. BREATHING EVEN AND UNLABORED, NO SOB NOTED. IV TO RFA IN PLACE, INFUSING NS AT 75 ML/HR. BED LOCKED AND IN LOWEST POSITION, CALL LIGHT IN REACH. WILL CONTINUE TO MONITOR.
[2017-09-28 20:00] VITALS: BP 125/65
[2017-09-28] MEDS: ENOXAPARIN SODIUM 40 MG/0.4 ML DISP.SYRIN SQ SCH (21:55)
[2017-09-28] MEDS: GUAIFENESIN/CODEINE 10 ML UDC PO PRN (23:16)
--- NOTE | 2017-09-28 23:30 | NUR ---
MS RN NOTE: PATIENT/FAMILY REQUESTING FOR COUGHING MEDICATION, ROBITUSSIN AC 10 ML GIVEN PER MD ORDER, WILL CONTINUE TO MONITOR.
[2017-09-29] MEDS: IPRATROPIUM NEB FS 0.5 MG/2.5 ML AMPUL.NEB NEB SCH ×7 (00:25→23:39)
[2017-09-29] MEDS: ALBUTEROL FS 2.5 MG/0.5 ML VIAL.NEB NEB SCH ×7 (00:25→23:39)
--- NOTE | 2017-09-29 03:30 | NUR ---
MS RN NOTE: PATIENT SLEEPING IN BED, NO ACUTE DISTRESS NOTED. BREATHING EVEN AND UNLABORED, NO SOB NOTED. BED LOCKED AND IN LOWEST POSITION, CALL LIGHT IN REACH. WILL CONTINUE TO MONITOR.
[2017-09-29] MEDS: PIPERACILLIN /TAZOBACTAM 3.375 G in IV NS 0.9% 50 ML IV SCH ×3 (05:35→17:16)
[2017-09-29] MEDS: IV NS 0.9% 1,000 ML IV PRN ×2 (05:35→23:00)
--- NOTE | 2017-09-29 06:05 | NUR ---
MS RN NOTE: PATIENT RESTING IN BED, NO ACUTE DISTRESS NOTED. BREATHING EVEN AND UNLABORED, NO SOB NOTED. IV TO RFA IN PLACE, INFUSING NS AT 75 ML/HR. BED LOCKED AND IN LOWEST POSITION, CALL LIGHT IN REACH. WILL ENDORSE TO DAY NURSE TO CONTINUE WITH PLAN OF CARE.
[2017-09-29 06:44] LABS: BASOPHILS % (AUTO) 0.6 % (0.0-2.0); EOSINOPHILS % (AUTO) 3.7 % (0.0-6.0); HEMATOCRIT 26 % (33-45); HEMOGLOBIN 8.6 g/dL (11.5-14.8); LYMPHOCYTES # (AUTO) 1.6 /CMM (0.8-4.8); LYMPHOCYTES % (AUTO) 27.3 % (20.0-44.0); MEAN CORPUSCULAR HGB CONC 33 g/dl (31.0-36.0); MEAN CORPUSCULAR VOLUME 84 fL (82-100); MONOCYTES # (AUTO) 0.7 /CMM (0.1-1.30); MONOCYTES % (AUTO) 10.9 % (2.0-12.0); NEUTROPHILS # (AUTO) 3.5 /CMM (1.8-8.9); NEUTROPHILS % (AUTO) 57.5 % (43.0-81.0); PLATELET COUNT (AUTO) 233 /CMM (150-450); RDW COEFFICIENT OF VARIATION 19.4 (11.5-15.0); RED BLOOD CELL COUNT(AUTO) 3.15 MIL/uL (4.0-5.2)
[2017-09-29 07:00] LABS: CALCIUM, SERUM 8.3 mg/dL (8.5-10.1); CARBON DIOXIDE 25 mmol/L (21-32); CHLORIDE 108 mmol/L (98-107); CREATININE 0.8 mg/dL (0.6-1.3); GLUCOSE 87 mg/dL (74-106); POTASSIUM 3.3 mmol/L (3.5-5.1); SODIUM SERUM 142 mmol/L (136-145); UREA NITROGEN, BLOOD 3 mg/dL (7-18)
[2017-09-29 08:00] VITALS: BP 114/67
[2017-09-29] MEDS: ENSURE ENLIVE 237 ML LIQUID (VANILLA) PO SCH ×2 (08:58→17:16)
[2017-09-29] MEDS: MEGESTROL ACETATE 40 MG TABLET PO SCH ×2 (08:58→17:16)
[2017-09-29] MEDS ORDERED: POTASSIUM CHLORIDE 20 MEQ TAB.PRT.SR PO ONE (10:30)
[2017-09-29] MEDS ORDERED: POTASSIUM CHLORIDE 20 MEQ POWDER PACKET PO ONE (11:30)
--- NOTE | 2017-09-29 11:32 | NUR ---
RN NOTES PATIENT WITH KDUR ORDERS, REQUESTING OTHER FORM PILL IS BIG AND HARD TO TAKE, PHARMACY AWARE AND WILL GIVE POWDER, WILL ADMINISTER ORDERED
[2017-09-29] MEDS ORDERED: LEVO500T90 PO (11:49)
[2017-09-29] MEDS: GUAIFENESIN/CODEINE 10 ML UDC PO PRN ×2 (12:36→22:00)
--- NOTE | 2017-09-29 12:47 | NUR ---
RN NOTES RECEIVED RESULTS FROM LAB FOR STOOL CULTURE, PATIENT POSITIVE FOR C-DIFF VENETIAN BLIND MACHINE OPERATOR AWARE, WITH NEW ORDERS CARRIED OUT, DISCHARGE CANCELLED AT THIS TIME, CONTACT ISOLATION PRECAUTIONS OBSERVED [employer] AWARE AND WILL PROVIDE ISOLATION CART
[2017-09-29] MEDS: METRONIDAZOLE 500 MG TABLET PO SCH ×2 (14:35→21:14)
[2017-09-29 16:00] VITALS: BP 118/60
--- NOTE | 2017-09-29 19:13 | NUR ---
RN NOTES PATIENT RESTING COMFORTABLY IN BED SLEEPING, EASILY AROUSABLE DURING CARE, ABLE TO MAKE NEEDS KNOWN. RESPIRATIONS EVEN AND UNLABORED, IN NO APPARENT PAIN OR DISCOMFORT. IV ACCESS TO RFA 18G PATENT AND INTACT, NO REDNESS OR INFILTRATION NOTED. FAMILY AT BEDSIDE WILL CONTINUE TO MONITOR FAMILY EDUCATED REGARDING ISOLATION PRECAUTIONS EXPLAINED RISKS X3 FAMILY CHOOSING NOT TO WEAR ISOLATION GOWN WILL CONTINUE TO EDUCATE
--- NOTE | 2017-09-29 19:45 | NUR ---
MS RN NOTES RECEIVED ON BED A/O X2-3,BREATHING NON LABORED.O2 IN USED AT 3L/NC TO KEEP O2 SAT ABOVE 90%.PRESENT IVF NS AT 75ML/HR RATE VIA IV PUMP ON RFA,SITE PATENT.ISOLATION PRECAUTION OBSERVED FOR C-DIFF POSITIVE.FAMILY MEMBERS AT BEDSIDE.CALL LIGHT IN REACH,NEEDS ANTICIPATED.
[2017-09-29 20:00] VITALS: BP 128/64
--- NOTE | 2017-09-29 21:00 | NUR ---
MS RN NOTES DUE FLAGYL 500MG PO GIVEN WITH APPLESAUCE,TAKEN WELL.NEGATIVE FOR ASPIRATION
[2017-09-29] MEDS: ENOXAPARIN SODIUM 40 MG/0.4 ML DISP.SYRIN SQ SCH (22:00)
--- NOTE | 2017-09-29 22:00 | NUR ---
MS RN NOTES C/O DRY COUGH,ROBITUSSIN 10ML PO GIVEN PER PATIENT REQUEST
[2017-09-30] MEDS: PIPERACILLIN /TAZOBACTAM 3.375 G in IV NS 0.9% 50 ML IV SCH ×3 (00:22→13:06)
[2017-09-30] MEDS: IPRATROPIUM NEB FS 0.5 MG/2.5 ML AMPUL.NEB NEB SCH ×4 (03:30→15:30)
[2017-09-30] MEDS: ALBUTEROL FS 2.5 MG/0.5 ML VIAL.NEB NEB SCH ×4 (03:30→15:30)
--- NOTE | 2017-09-30 04:03 | NUR ---
HHN treatment not given; medications not available. Addendum: 09/30/17 at 0403 by NELA MURRIETA RT Amended: Links added.
[2017-09-30] MEDS: METRONIDAZOLE 500 MG TABLET PO SCH ×2 (05:12→13:06)
--- NOTE | 2017-09-30 06:00 | NUR ---
MS RN NOTES SLEPT WITH INTERVALS.NO DIARRHEA NOTED THRU OUT SHIFT.IV ABX TOLERATED WELL.AMBULATE TO THE TOILET WITH WALKER ASSISTED BY JOSEPH MOORE.POSSIBLE D/C HOME TODAY,CLEARED BY DR PONCE.IN NO ACUTE DISTRESS.WILL ENDORSE TO DAY NURSE FOR BENJA.
--- NOTE | 2017-09-30 07:05 | NUR ---
MS RN OPENING NOTES RECEIVED PT FROM NIGHTSHIFT NURSE IN STABLE CONDITION. PT IS A/O X3. NO SOB OR SIGNS OF DISTRESS NOTED. BREATHING IS EVEN AND UNLABORED. PT IS ON 3L VIA NC AND SATING WELL. IV TO RIGHT FOREARM IN NOTED TO BE PATENT AND INTACT. NO REDNESS OR SIGNS OF INFILTRATION NOTED. PT TOLERATING NS INFUSION WELL. CONTACT ISOLATION PRECAUTIONS OBSERVED. PT'S DAUGHTER REPORTS NO EPISODES OF DIARRHEA DURING THE NIGHTSHIFT. PT'S DAUGHTER ALSO EDUCATED AND INSTRUCTED TO WEAR ISOLATION GOWN AND GLOVES HOWEVER STATES "I AM ALWAYS WITH MY MOM, I PREFER NOT TO WEAR ANYTHING". BE IN LOW LOCKED POSITION, SIDE RAILS UP X2, CALL LIGHT WITHIN PT'S REACH. WILL CONTINUE TO MONITOR
[2017-09-30 08:00] VITALS: BP 112/63
[2017-09-30] MEDS: ENSURE ENLIVE 237 ML LIQUID (VANILLA) PO SCH (08:17)
[2017-09-30] MEDS: MEGESTROL ACETATE 40 MG TABLET PO SCH (08:18)
--- NOTE | 2017-09-30 10:49 | NUR ---
MS RN NOTES PER JAMAL MARTINEZ, "ORDER A STAT CHEST XRAY, PT IS STILL COMPLAINING OF SOB. IF THERE ARE NO INCREASING PLEURAL EFFUSIONS, THEN SHE MAY BE CLEARED FOR D/C". WILL CARRY OUT ORDERS
[2017-09-30 11:07] LABS: CALCIUM, SERUM 8.5 mg/dL (8.5-10.1); CARBON DIOXIDE 27 mmol/L (21-32); CHLORIDE 106 mmol/L (98-107); CREATININE 0.8 mg/dL (0.6-1.3); GLUCOSE 118 mg/dL (74-106); POTASSIUM 3.2 mmol/L (3.5-5.1); SODIUM SERUM 140 mmol/L (136-145); UREA NITROGEN, BLOOD 3 mg/dL (7-18)
[2017-09-30 11:42] LABS: BASOPHILS # (AUTO) 0.1 /CMM (0.0-0.2); EOSINOPHILS % (AUTO) 3.2 % (0.0-6.0); HEMATOCRIT 25 % (33-45); HEMOGLOBIN 8.6 g/dL (11.5-14.8); LYMPHOCYTES # (AUTO) 1.3 /CMM (0.8-4.8); LYMPHOCYTES % (AUTO) 22.5 % (20.0-44.0); MEAN CORPUSCULAR HGB CONC 34 g/dl (31.0-36.0); MEAN CORPUSCULAR VOLUME 83 fL (82-100); MONOCYTES # (AUTO) 0.5 /CMM (0.1-1.30); MONOCYTES % (AUTO) 9.2 % (2.0-12.0); NEUTROPHILS # (AUTO) 3.5 /CMM (1.8-8.9); NEUTROPHILS % (AUTO) 64.1 % (43.0-81.0); PLATELET COUNT (AUTO) 239 /CMM (150-450); RDW COEFFICIENT OF VARIATION 17.5 (11.5-15.0); RED BLOOD CELL COUNT(AUTO) 3.04 MIL/uL (4.0-5.2); WHITE BLOOD COUNT (AUTO) 5.6 K/uL (4.3-11.0)
[2017-09-30] MEDS ORDERED: POTASSIUM CHLORIDE 20 MEQ TAB.PRT.SR PO ONE (12:30)
--- NOTE | 2017-09-30 12:30 | NUR ---
MS RN NOTES THE RESULTS OF THE PT'S CHEST XRAY WERE REVIEWED BY JAMAL. PER Diamond Castillo "PT IS CLEARED FOR D/C"
[2017-09-30] MEDS ORDERED: METR500T PO (12:41)
--- NOTE | 2017-09-30 15:00 | NUR ---
MS STRATEGIC CLIENT EXECUTIVE NOTES PT WAS DISCHARGED FROM FACILITY IN STABLE CONDITION. ALL NEEDS WERE MET DURING SHIFT AND ORDERS CARRIED OUT ACCORDINGLY. ALL DUE MEDS GIVEN. PT WAS PROVIDED WITH ALL EXITCARE MATERIALS, DISCHARGE, INSTRUCTIONS, AND PRESCRIPTION FORM. PT'S DAUGHTER SIGNED ALL EXITCARE MATERIALS PT IS UNABLE TO SIGN. BELONGINGS FORM ALSO SIGNED BY PT. IV WAS SUCCESSFULLY REMOVED WITH NO COMPLICATIONS. PT REMINDED OF FOLLOW UP APPOINTMENTS. SHE LEFT WITH ALL BELONGINGS. PT WAS SAFELY ESCORTED TO THE MAIN LOBBY BY THE ALUMINIZER AND LEFT VIA PRIVATE VEHICLE
== END 2017-09-30 15:00 | disposition home health service (06) | DRG 597 ==
LOC: ER 18:11 → TELE 20:04 → MED 09-27 11:14
PROVIDERS: ADMIT Internal Medicine; ATTEND Internal Medicine
PROC: 0W9B3ZX Drainage of Left Pleural Cavity, Percutaneous Approach, Diagnostic (ICD-10-PCS; principal; 2017-09-27)
DX: C50.912 Malignant neoplasm of unspecified site of left female breast (principal); J96.21 Acute and chronic respiratory failure with hypoxia; J15.9 Unspecified bacterial pneumonia; J91.0 Malignant pleural effusion; E44.0 Moderate protein-calorie malnutrition; A04.72 Enterocolitis due to Clostridium difficile, not specified as recurrent; C78.00 Secondary malignant neoplasm of unspecified lung; J98.11 Atelectasis; I11.0 Hypertensive heart disease with heart failure; I50.9 Heart failure, unspecified; E83.42 Hypomagnesemia; E78.5 Hyperlipidemia, unspecified; E87.6 Hypokalemia; K21.9 Gastro-esophageal reflux disease without esophagitis; D63.8 Anemia in other chronic diseases classified elsewhere; Z90.12 Acquired absence of left breast and nipple; Z87.01 Personal history of pneumonia (recurrent); E88.09 Other disorders of plasma-protein metabolism, not elsewhere classified; D64.81 Anemia due to antineoplastic chemotherapy; T45.1X5A Adverse effect of antineoplastic and immunosuppressive drugs, initial encounter; Y92.009 Unspecified place in unspecified non-institutional (private) residence as the place of occurrence of the external cause
CPT/HCPCS: 36415; 36600; 71045-TC; 71270-TC; 74178; 76942-TC; 80048-TC; 80053-TC; 80061-TC; 80076-TC; 81000-TC; 82272-TC; 83605-TC; 83735-TC; 84100-TC; 84484-TC; 85025-TC; 85027-TC; 85610-TC; 85730-TC; 86300; 87040-TC; 87070-TC; 87081-TC; 87086-TC; 87116; 87206; 88305-TC; 88312-TC; 88342; 89051-TC; 93307-TC; 93970-TC; 94760-TC; 94762-TC; 94799-TC; A4216; A4606; J0692; J1650; J2405; J2543; J3370; J3475; J3480; J7030; J7040; J7050; J7060; Q9967; Z7610

== ENCOUNTER 2017-10-13 17:14 | Inpatient (IN) | payer MEDICARE, OTHER ==
[~2017-10-13] VITALS: Ht 160 cm; Wt 46.3 kg
[~2017-10-13 17:14] MED LIST changes: +LEVO500T90 PO; +METR500T PO
--- NOTE | 2017-10-13 17:14 | NUR ---
C/O SOB X4DAYS EVENT STAFF MEMBER SENT BY DR UP ONCOLOGIST . PLACED ON MONITOR. ON 4 LPM VIA NC CONT. PT HAS PORTACATH
[2017-10-13 18:12] LABS: BASOPHILS % (AUTO) 0.4 % (0.0-2.0); EOSINOPHILS % (AUTO) 1.3 % (0.0-6.0); HEMATOCRIT 30 % (33-45); HEMOGLOBIN 10.2 g/dL (11.5-14.8); LYMPHOCYTES # (AUTO) 1.8 /CMM (0.8-4.8); LYMPHOCYTES % (AUTO) 25.5 % (20.0-44.0); MEAN CORPUSCULAR HGB CONC 34 g/dl (31.0-36.0); MEAN CORPUSCULAR VOLUME 83 fL (82-100); MONOCYTES % (AUTO) 13.8 % (2.0-12.0); NEUTROPHILS # (AUTO) 4.2 /CMM (1.8-8.9); PLATELET COUNT (AUTO) 212 /CMM (150-450); RDW COEFFICIENT OF VARIATION 19.1 (11.5-15.0); WHITE BLOOD COUNT (AUTO) 7.1 K/uL (4.3-11.0)
[2017-10-13 18:24] LABS: CALCIUM, SERUM 8.5 mg/dL (8.5-10.1); CARBON DIOXIDE 27 mmol/L (21-32); CHLORIDE 104 mmol/L (98-107); CREATININE 0.9 mg/dL (0.6-1.3); GLUCOSE 129 mg/dL (74-106); POTASSIUM 3.1 mmol/L (3.5-5.1); SODIUM SERUM 138 mmol/L (136-145); UREA NITROGEN, BLOOD 6 mg/dL (7-18)
[2017-10-13] MEDS ORDERED: POTASSIUM CHLORIDE 20 MEQ TAB.PRT.SR PO ONE (18:30)
--- NOTE | 2017-10-13 18:30 | NUR ---
CALLED NURSING STONE POLISHER MACHINE AND REQUESTED A MED SURG BED FOR THIS PT.
--- NOTE | 2017-10-13 18:30 | NUR ---
VERBAL ORDER DR DUMONT GIVEN POTASSIUM PACKET 40 MEQ INSTEAD OF TABLET
[2017-10-13] MEDS ORDERED: POTASSIUM CHLORIDE 20 MEQ POWDER PACKET ONE (18:33)
--- NOTE | 2017-10-13 19:07 | NUR ---
GAVE REPORT TO [facility] FOR BENJA
--- NOTE | 2017-10-13 19:10 | NUR ---
RECEIVED REPORT FROM NIKOLAI RODAS FOR BENJA.
[2017-10-13] MEDS ORDERED: MAG HYDROX/AL HYDROX/SIMETH 30 ML UDC PO PRN (20:00)
[2017-10-13] MEDS ORDERED: Z GUARD REMEDY 2 OZ OINT TP PRN (20:00)
[2017-10-13] MEDS ORDERED: FUROSEMIDE 20 MG/2 ML VIAL IV ONE (20:00)
[2017-10-13] MEDS ORDERED: ONDANSETRON HCL/PF 4 MG/2 ML VIAL IVP PRN (20:00)
[2017-10-13] MEDS ORDERED: LORAZEPAM 1 MG TABLET PO PRN (20:00)
[2017-10-13] MEDS ORDERED: MAGNESIUM HYDROXIDE 30 ML UDC PO PRN (20:00)
[2017-10-13] MEDS ORDERED: ACETAMINOPHEN 325 MG TABLET PO PRN (20:00)
--- NOTE | 2017-10-13 20:03 | NUR ---
PT IS ASSIGNED TO [facility]#: 110, PT IS DIAGNOSED WITH DYSPNEA, AND DR THOMAS IS THE ACCEPTING MD.
--- NOTE | 2017-10-13 20:39 | NUR ---
PT BEING TRANSPORTED TO ROOM 110 BY RN GLENYS AND EMT. VSS.
[2017-10-13 20:58] VITALS: BP 125/67
--- NOTE | 2017-10-13 21:00 | NUR ---
[facility] HELPER ADMITTING NOTES RECEIVED REPORT FROM ROUNDHOUSE FIRER/FIREMAN. PATIENT ADMITTED W/ TELE STATUS & ARRIVED ON UNIT VIA W/C TO ROOM 110. PATIENT A/A/O X4, MOSTLY BARBADIAN SPEAKING BUT ABLE TO FOLLOW SIMPLE COMMANDS. SOB NOTED W/ EXERTION & ACTIVITY & SATING @ 97% ON O2 @ 3LPM VIA NC. ON TELE MONITOR W/ SINUS RHYTHM, HR 90S. DENIES ANY CHEST PAIN OR DISCOMFORT. RIGHT FOREARM IV #20 INTACT & PATENT W/ DRESSING CDI, SALINE LOCKED. SKIN WARM, DRY & INTACT W/ NO SKIN ISSUES IDENTIFIED. PATIENT DENIES ANY PAIN @ THIS TIME. SAFETY MEASURES IN PLACE W/ SIDE RAILS UP, BED LOCKED & IN LOWEST POSITION & BED ALARM ON. CALL LIGHT WITHIN REACH & INSTRUCTED TO USE FOR ASSISTANCE. DAUGHTER, CARLITA, AT BEDSIDE & TRANSLATING SOME QUESTIONS & ANSWERS. AWAITING ADMITTING ORDERS. WILL CONTINUE TO MONITOR.
[2017-10-13] MEDS: HYDROCODONE/APAP 5/325MG 1 EACH TABLET PO PRN (23:39)
[2017-10-13] MEDS: ZOLPIDEM TARTRATE 5 MG TABLET PO PRN (23:39)
[2017-10-14] VITALS: BP 102/59
[2017-10-14 04:00] VITALS: BP 142/61
[2017-10-14] MEDS: HYDROCODONE/APAP 5/325MG 1 EACH TABLET PO PRN (05:27)
[2017-10-14 06:11] LABS: BASOPHILS % (AUTO) 0.6 % (0.0-2.0); EOSINOPHILS % (AUTO) 1.7 % (0.0-6.0); HEMATOCRIT 30 % (33-45); HEMOGLOBIN 9.9 g/dL (11.5-14.8); LYMPHOCYTES # (AUTO) 2.1 /CMM (0.8-4.8); LYMPHOCYTES % (AUTO) 29.5 % (20.0-44.0); MEAN CORPUSCULAR HGB CONC 33 g/dl (31.0-36.0); MEAN CORPUSCULAR VOLUME 84 fL (82-100); MONOCYTES # (AUTO) 1.1 /CMM (0.1-1.30); MONOCYTES % (AUTO) 15.6 % (2.0-12.0); NEUTROPHILS # (AUTO) 3.8 /CMM (1.8-8.9); NEUTROPHILS % (AUTO) 52.6 % (43.0-81.0); PLATELET COUNT (AUTO) 217 /CMM (150-450); RED BLOOD CELL COUNT(AUTO) 3.57 MIL/uL (4.0-5.2); WHITE BLOOD COUNT (AUTO) 7.3 K/uL (4.3-11.0)
[2017-10-14 06:47] LABS: CALCIUM, SERUM 8.7 mg/dL (8.5-10.1); CARBON DIOXIDE 30 mmol/L (21-32); CHLORIDE 103 mmol/L (98-107); CREATININE 0.7 mg/dL (0.6-1.3); GLUCOSE 90 mg/dL (74-106); MAGNESIUM 1.8 mg/dL (1.8-2.4); PHOSPHORUS 3.1 mg/dL (2.5-4.9); POTASSIUM 3.1 mmol/L (3.5-5.1); SODIUM SERUM 139 mmol/L (136-145); UREA NITROGEN, BLOOD 5 mg/dL (7-18)
[2017-10-14 08:00] VITALS: BP 113/56
--- NOTE | 2017-10-14 08:00 | NUR ---
Tele/RN - Assessment Patient awake, alert and oriented, denies pain, no c/o SOB, currently on 3lpm via nasal cannula, SR on the monitor. RFA saline lock is patent, intact with no signs of infiltration. Patient scheduled for thoracentesis today, consent signed by daughter. All needs attended and met. Fall and aspiration precautions maintained. Grand daughter at bedside. Will continue with current medical management.
[2017-10-14 08:03] LABS: EOSINOPHILS % (MANUAL) 2 % (0-4); LYMPHOCYTES % (MANUAL) 28 % (16-48); MONOCYTES % (MANUAL) 16 % (0-11.0); NEUTROPHILS % (MANUAL) 54 (42-76)
[2017-10-14] MEDS: LEVOTHYROXINE SODIUM 50 MCG TABLET PO SCH (08:12)
[2017-10-14] MEDS: ANASTROZOLE 1 MG TABLET PO SCH (08:12)
[2017-10-14] MEDS: FERROUS SULFATE (325 MG) 325 MG/TAB TABLET PO SCH (08:12)
[2017-10-14] MEDS: FOLIC ACID 1 MG TABLET PO SCH (08:12)
[2017-10-14] MEDS: POTASSIUM CHLORIDE 20 MEQ TAB.PRT.SR PO SCH ×2 (10:21→11:24)
[2017-10-14 11:05] LABS: INR 1.11 (0.87-1.13)
[2017-10-14] MEDS: HYDROCODONE/APAP 10/325MG 1 EA TABLET PO PRN (11:20)
[2017-10-14 12:00] VITALS: BP 115/56
--- NOTE | 2017-10-14 12:40 | NUR ---
Tele/RN - US guided thoracentesis Patient s/p left chest US guided thoracentesis at bedside, 900 cc of thin charlie fluid was aspirated from the left pleural space. Patient tolerated procedure well. CXR done, no pneumothorax noted. All needs attended and met. Will monitor for any bleeding on the left chest insertion site.
[2017-10-14 16:00] VITALS: BP 104/60
--- NOTE | 2017-10-14 17:25 | NUR ---
Tele/RN - Notes Patient resting comfortably, denies SOB, remain afebrile, SR on the monitor, no c/o chest pain at this time, no bleeding on the left chest insertion site. All needs attended and met. Will continue with current medical management.
[2017-10-14] MEDS: PANTOPRAZOLE 40 MG VIAL IV SCH (18:36)
--- NOTE | 2017-10-14 19:00 | NUR ---
SAMPLES AND REPAIRS PREPARER NOTES RECEIVE PT IN BED A/O X 3, NO S/S OF DISTRESS, SAFETY MEASURES IN PLACE, CALL LIGHT WITHIN REACH, WILL CONTINUE TO MONITOR
[2017-10-14 20:00] VITALS: BP 134/53
[2017-10-14] MEDS: ZOLPIDEM TARTRATE 5 MG TABLET PO PRN (21:02)
[2017-10-15] VITALS: BP 100/60
[2017-10-15 04:00] VITALS: BP 98/55
--- NOTE | 2017-10-15 06:14 | NUR ---
MS RN CLOSING NOTES ASLEEP AND EASILY AWAKEN, HOB ELEVATED, STABLE NO S/S OF ACUTE DISTRESS OR SOB NOTED. ON 3LPM VIA NC 02 SAT 98% RESPIRATIONS EVEN AND UNLABORED. NEEDS ATTENDED AND ANTICIPATED; AFEBRILE, KEPT CLEAN AND DRY AND COMFORTABLE. VSS. MAINTAINS NPO SINCE MIDNIGHT, SAFETY MEASURES IN PLACE. BED LOW LOCKED SIDE RAILS UP, CALL LIGHT AND BEDSIDE TABLE WITHIN REACH. ENDORSE TO THE NEXT SHIFT POC.
[2017-10-15 06:42] VITALS: BP 101/58
--- NOTE | 2017-10-15 06:58 | NUR ---
AIR DEFENSE ARTILLERY SENIOR SERGEANT NOTES PT SAFETY AND SECURITY OFFICER BY 2 O.R TECH FOR EGD TODAY. STABLE CONDITION. WILL ENDORSE
[2017-10-15] MEDS ORDERED: ANESTHESIA TRAY IN PYXIS 1 EA TRAY MC ONE (07:02)
--- NOTE | 2017-10-15 07:18 | NUR ---
RN OPEN NOTES RECEIVED REPORT FROM GRAIN OILSEED OR PASTURE FARM MANAGER NURSE. PATIENT IS ABSENT FROM FLOOR FOR EGD PROCEDURE
--- NOTE | 2017-10-15 08:30 | NUR ---
PATIENT RETUNED TO UNIT FROM EGD. PER MD ORDER, RESUME REGULAR DIET. PAIN LEVEL 9/10, TREATED WITH NORCO. CITLALI SIGN WITHIN ACCEPTABLE LIMITS - REFER TO FLOWSHEET FOR LEVELS. GRANDDAUGHTER AT BEDSIDE. AM MEDS ADMINISTERED. BED IN LOW POSITION, LOCKED AND TWO SIDE RAILS ARE UP FOR SAFETY. CALL LIGHT WITH IN REACH. WILL CONTINUE TO ASSESS AND MONITOR PATIENT
[2017-10-15] MEDS: FOLIC ACID 1 MG TABLET PO SCH (08:31)
[2017-10-15] MEDS: ANASTROZOLE 1 MG TABLET PO SCH (08:31)
[2017-10-15] MEDS: LEVOTHYROXINE SODIUM 50 MCG TABLET PO SCH (08:31)
[2017-10-15] MEDS: FERROUS SULFATE (325 MG) 325 MG/TAB TABLET PO SCH (08:31)
[2017-10-15 08:34] VITALS: BP 107/59
[2017-10-15] MEDS: HYDROCODONE/APAP 10/325MG 1 EA TABLET PO PRN ×2 (08:40→15:04)
[2017-10-15] MEDS: MAGNESIUM HYDROXIDE 30 ML UDC PO PRN ×2 (12:26→18:44)
[2017-10-15] MEDS: PANTOPRAZOLE 40 MG VIAL IV SCH (17:35)
--- NOTE | 2017-10-15 18:34 | NUR ---
EXTRACT OPERATOR CLOSING NOTES PATIENT IS IN BED, AWAKE AND ALERT. DAUGHTER AT BEDSIDE. NO SOB OR DISTRESS OPENS EYES0. SR ON THE TELE MONITOR. KEPT CLEAN AND DRY AND COMFORTABLE, NEEDS ATTENDED AND ANTICIPATED. NURSING CARE RENDERED, GOOD SKIN CARE, TX ORDERED. OFFLOAD HEELS AND ELBOWS. BED LOCKED AND IN LOWEST POSITION, CALL LIGHT WITHIN REACH, WILL ENDORSE TO NEXT SHIFT.
--- NOTE | 2017-10-15 19:15 | NUR ---
RN OPENING NOTES PT AWAKE AND ALERT. FAMILY AT BEDSIDE. NO COMPLAINTS OF PAIN, SOB, OR DISTRESS AT THIS TIME. PT IS TELE MONITORED SINUS RHYTHM. PT HAS A RIGHT FOREARM #20, INTACT AND PATENT. PT IS SP EGD (10/15/17) AND LEFT CHEST WALL THORACENTESIS (10/14/17). SAFETY PRECAUTIONS IN PLACE, BED IN LOWEST LOCKED POSITION, X2 SIDE RAILS UP, CALL LIGHT WITHIN REACH. WILL CONTINUE TO MONITOR.
[2017-10-15 20:00] VITALS: BP 105/61
[2017-10-15] MEDS: ZOLPIDEM TARTRATE 5 MG TABLET PO PRN (21:29)
[2017-10-15] MEDS: HYDROCODONE/APAP 5/325MG 1 EACH TABLET PO PRN (21:29)
[2017-10-16] VITALS: BP 104/55
--- NOTE | 2017-10-16 05:30 | NUR ---
RN NOTES GAVE REPORT TO NIKOLAI NORMAN 3 [place]. PT TRANSFERRED TO ROOM 313-1.
--- NOTE | 2017-10-16 06:35 | NUR ---
MANAGER OF EXHIBITIONS AND COLLECTIONS NOTE NO ACUTE DISTRESS NOTED SINCE PATIENT WAS TRANSFERRED TO [facility]. FAMILY AT BED SIDE WELL. RESTING IN BED COMFORTABLY, NO S/S OF RESPIRATORY DISTRESS OR PAIN REPORTED. WILL ENDORSE TO DAY SHIFT NURSE FOR BENJA.
[2017-10-16 06:38] VITALS: BP 129/59
--- NOTE | 2017-10-16 06:56 | NUR ---
RN NOTES: CBC AND BMP PER DR THOMAS
[2017-10-16 07:03] LABS: BASOPHILS % (AUTO) 0.3 % (0.0-2.0); EOSINOPHILS % (AUTO) 2.8 % (0.0-6.0); HEMATOCRIT 30 % (33-45); HEMOGLOBIN 9.7 g/dL (11.5-14.8); LYMPHOCYTES # (AUTO) 2.3 /CMM (0.8-4.8); LYMPHOCYTES % (AUTO) 33.2 % (20.0-44.0); MEAN CORPUSCULAR HGB CONC 33 g/dl (31.0-36.0); MEAN CORPUSCULAR VOLUME 84 fL (82-100); MONOCYTES # (AUTO) 0.9 /CMM (0.1-1.30); MONOCYTES % (AUTO) 13.1 % (2.0-12.0); NEUTROPHILS # (AUTO) 3.5 /CMM (1.8-8.9); NEUTROPHILS % (AUTO) 50.6 % (43.0-81.0); PLATELET COUNT (AUTO) 209 /CMM (150-450); RDW COEFFICIENT OF VARIATION 19.6 (11.5-15.0); RED BLOOD CELL COUNT(AUTO) 3.53 MIL/uL (4.0-5.2); WHITE BLOOD COUNT (AUTO) 6.9 K/uL (4.3-11.0)
--- NOTE | 2017-10-16 07:05 | NUR ---
RN INITIAL NOTES: PATIENT RESTING IN BED. NONLABORED BREATHING NOTED ON 3 L NASAL CANNULA. NO SIGNS OF DISTRESS NOTED. NO FACIAL GRIMACING NOTED. IV 20 ON RIGHT FOREARM PATENT AND INTACT. BED IN LOWEST LOCKED POSITION. CALL LIGHT WITHIN REACH. GRANDDAUGHTER AT BEDSIDE.
--- NOTE | 2017-10-16 07:06 | NUR ---
RN NOTES: PATIENT SINUS RHYTHM 82 ON TELE MONITOR
[2017-10-16 07:13] LABS: THYROID STIMULATING HORMONE 3.921 uIU/mL (0.358-3.74)
[2017-10-16 08:00] VITALS: BP 111/57
[2017-10-16] MEDS: LEVOTHYROXINE SODIUM 50 MCG TABLET PO SCH (08:01)
[2017-10-16 08:46] LABS: CALCIUM, SERUM 8.5 mg/dL (8.5-10.1); CARBON DIOXIDE 30 mmol/L (21-32); CHLORIDE 105 mmol/L (98-107); CREATININE 0.7 mg/dL (0.6-1.3); GLUCOSE 112 mg/dL (74-106); POTASSIUM 3.4 mmol/L (3.5-5.1); SODIUM SERUM 140 mmol/L (136-145); UREA NITROGEN, BLOOD 7 mg/dL (7-18)
[2017-10-16] MEDS: ANASTROZOLE 1 MG TABLET PO SCH (08:53)
[2017-10-16] MEDS: FERROUS SULFATE (325 MG) 325 MG/TAB TABLET PO SCH (08:53)
[2017-10-16] MEDS: FOLIC ACID 1 MG TABLET PO SCH (08:53)
--- NOTE | 2017-10-16 10:00 | NUR ---
RN NOTES, PATIENT'S BELONGINGS : PER PATIENT'S DAUGHTER, OXYGEN TANK BROUGHT FROM HOME IS IN [facility] AND WAS NOT TRANSFERRED TO 3RD FLOOR. CONTACTED [facility] INCOME TAX INVESTIGATOR, TANK TO BE BROUGHT TO UNIT.
[2017-10-16] MEDS ORDERED: POTASSIUM CHLORIDE 20 MEQ TAB.PRT.SR PO SCH (12:00)
[2017-10-16 16:00] VITALS: BP 132/63
[2017-10-16] MEDS: HYDROCODONE/APAP 5/325MG 1 EACH TABLET PO PRN (16:34)
[2017-10-16] MEDS: PANTOPRAZOLE 40 MG VIAL IV SCH (17:30)
--- NOTE | 2017-10-16 18:44 | NUR ---
RN CLOSING NOTES: PATIENT RESTING IN BED. NONLABORED BREATHING NOTED ON 3 L NASAL CANNULA. NO SIGNS OF DISTRESS NOTED. NO FACIAL GRIMACING NOTED. IV 20 ON RIGHT FOREARM PATENT AND INTACT. BED IN LOWEST LOCKED POSITION. CALL LIGHT WITHIN REACH. DAUGHTER AT BEDSIDE. NO NAUSEA AND NO VOMITING NOTED DURING SHIFT. PATIENT ENCOURAGED TO INCREASE PO CONSUMPTION. OFFERED SNACKS DURING SHIFT. KEPT CLEAN AND DRY DURING SHIFT. FALL PRECAUTIONS IMPLEMENTED THROUGHOUT SHIFT. WILL ENDORSE TO NEXT SHIFT
--- NOTE | 2017-10-16 19:30 | NUR ---
RN NOTES: RECEIVED AWAKE LYING ON BED, ON SEMI FOWLERS POSITION, O2 AT 3L/MIN VIA NC SPO2-99%, NO SIGN OF SOB, MOUTH BREATHING, DAUGHTER PRESENT AT BED SIDE,NOT ON RESPIRATORY DISTRESS,BED LOW AND LOCKED, CALL LIGHT WITHIN EASY REACH,KEPT ON CLOSE WATCH.
[2017-10-16 20:00] VITALS: BP 108/62
[2017-10-16] MEDS: ZOLPIDEM TARTRATE 5 MG TABLET PO PRN (21:35)
--- NOTE | 2017-10-16 21:41 | NUR ---
RN NOTES: PATIENT IS NOT YET SLEEPING, REQUESTED FOR SLEEPING PILL; AMBIEN GIVEN, KEPT ROOM DIM LIT, AND GIVEN WARM BLANKET, KEPT COMFORTABLE IN BED, CALL LIGHT WITH IN EASY REACH.
--- NOTE | 2017-10-16 22:37 | NUR ---
RN NOTES: ABLE TO SLEEP AND REST,KEPT ON CLOSE WATCH.
[2017-10-17 06:30] LABS: CALCIUM, SERUM 8.6 mg/dL (8.5-10.1); CARBON DIOXIDE 30 mmol/L (21-32); CHLORIDE 105 mmol/L (98-107); CREATININE 0.7 mg/dL (0.6-1.3); GLUCOSE 86 mg/dL (74-106); POTASSIUM 3.5 mmol/L (3.5-5.1); SODIUM SERUM 140 mmol/L (136-145); UREA NITROGEN, BLOOD 5 mg/dL (7-18)
--- NOTE | 2017-10-17 06:37 | NUR ---
RN NOTES: DURING LAST ROUNDS PATIENT IS STILL ASLEEP, WITH DAUGHTER PRESENT AT BED SIDE, NO PAIN OR DISCOMFORT, NO SOB, ON O2 INHALATION, KEPT RESTED, BED LOW AND LOCKED, CALL LIGHT WITHIN EASY REACH, ENDORSED FOR CONTINUITY OF CARE.
[2017-10-17 08:00] VITALS: BP 112/56
--- NOTE | 2017-10-17 08:00 | NUR ---
MS RN NOTES PATIENT IN BED RESTING NO SOB OR ACUTE DISTRESS NOTED. PATIENT ALERT, ORIENTED X3. DAUGHTER AT BEDSIDE. DENIES ANY PAIN OR DISCOMFORT. BED IN LOW LOCKED POSITION. CALL LIGHT WITHIN REACH. WILL CONTINUE TO MONITOR.
[2017-10-17] MEDS: FERROUS SULFATE (325 MG) 325 MG/TAB TABLET PO SCH (08:18)
[2017-10-17] MEDS: ANASTROZOLE 1 MG TABLET PO SCH (08:18)
[2017-10-17] MEDS: LEVOTHYROXINE SODIUM 50 MCG TABLET PO SCH (08:18)
[2017-10-17] MEDS: FOLIC ACID 1 MG TABLET PO SCH (08:18)
[2017-10-17] MEDS: HYDROCODONE/APAP 5/325MG 1 EACH TABLET PO PRN (08:20)
--- NOTE | 2017-10-17 09:30 | NUR ---
MS RN NOTES PATIENT SEEN AND EVALUATED BY DR. THOMAS ORDERS NOTED AND CARRIED OUT.
[2017-10-17 16:00] VITALS: BP 118/61
[2017-10-17] MEDS: PANTOPRAZOLE 40 MG VIAL IV SCH (17:39)
--- NOTE | 2017-10-17 19:15 | NUR ---
MS RN OPENING NOTES: RECEIVED PT AWAKE LYING IN BED, IN SEMI FOWLERS POSITION, O2 AT 3L/MIN VIA NC SPO2-97%, NO SIGN OF SOB, MOUTH BREATHING, DAUGHTER PRESENT AT BED SIDE, NOT IN RESPIRATORY DISTRESS, NO C/O PAIN @ THIS TIME. IV ACCESS TO RFA, S/L, INTACT & PATENT. BED LOW AND LOCKED, CALL LIGHT WITHIN EASY REACH, WILL CONTINUE TO MONITOR.
--- NOTE | 2017-10-17 19:34 | NUR ---
MS RN NOTES PATIENT IN BED RESTING DAUGHTER AT BEDSIDE. NO SOB OR ACUTE DISTRESS NOTED. ALL DUE MEDICATIONS ADMINISTERED. ALL NEEDS MET. ENDORSED CARE TO PM SHIFT.
[2017-10-17] MEDS: HYDROCODONE/APAP 10/325MG 1 EA TABLET PO PRN (19:48)
--- NOTE | 2017-10-17 19:48 | NUR ---
PRN NORCO GIVEN PT HAD C/O RIGHT CHEST PAIN WHERE THE PROCEDURE WAS DONE ON 10/14/17. SCALED HER PAIN LEVEL 01/14, PRN NORCO GIVEN. WILL MONITOR FOR EFFECTIVENESS.
[2017-10-17 20:00] VITALS: BP 127/66
[2017-10-17 20:24] VITALS: BP 127/66
[2017-10-17] MEDS: ALBUTEROL FS 2.5 MG/3 ML VIAL.NEB NEB PRN (21:09)
[2017-10-17] MEDS: ZOLPIDEM TARTRATE 5 MG TABLET PO PRN (21:51)
--- NOTE | 2017-10-17 21:53 | NUR ---
PRN AMBIEN GIVEN PT REQUESTED FOR SLEEPING PILL, PRN AMBIEN GIVEN & WILL REASSESS FOR EFFECTIVENESS.
--- NOTE | 2017-10-17 23:00 | NUR ---
MS RN NOTE PT NOTED TO BE SLEEPING COMFORTABLY IN BED. MARSHALL WAS EFFECTIVE.
--- NOTE | 2017-10-18 06:37 | NUR ---
MS RN CLOSING NOTES: PT SLEPT WELL @ NIGHT IN SEMI FOWLERS POSITION, O2 AT 3L/MIN VIA NC SPO2-98%, NO SIGN OF SOB, NOT IN RESPIRATORY DISTRESS, NO C/O PAIN @ THIS TIME. IV ACCESS TO RFA, S/L, INTACT & PATENT. BED LOW AND LOCKED, ALL NEEDS ATTENDED TO & MET. CALL LIGHT WITHIN EASY REACH, WILL ENDORSE TO AM RN FOR CONTINUITY OF CARE
[2017-10-18] MEDS: LEVOTHYROXINE SODIUM 50 MCG TABLET PO SCH (07:15)
[2017-10-18] MEDS: HYDROCODONE/APAP 10/325MG 1 EA TABLET PO PRN (07:16)
--- NOTE | 2017-10-18 07:16 | NUR ---
PRN NORCO GIVEN PT HAD C/O RIGHT CHEST PAIN WHERE THE PROCEDURE WAS DONE ON 10/14/17. SCALED HER PAIN LEVEL 01/14, PRN NORCO GIVEN. WILL MONITOR FOR EFFECTIVENESS, ENDORSED TO AM RN WELL.
--- NOTE | 2017-10-18 07:25 | NUR ---
MS/RN OPENING NOTE PATIENT IN BED AWAKE. ALERT AND ORIENTED X3. ON OXYGEN AT 3L/MIN VIA NC. DENIES SOB. RESPIRATION REGULAR AND UNLABORED. DENIES PAIN. RFA G 20 PATENT AND SALINE LOCKED. SIDE RAILS UP X2. CALL LIGHT WITHIN REACH. WILL CONTINUE TO MONITOR.
[2017-10-18] MEDS: ALBUTEROL FS 2.5 MG/3 ML VIAL.NEB NEB PRN (07:54)
[2017-10-18 08:08] VITALS: BP 138/62
[2017-10-18] MEDS: FERROUS SULFATE (325 MG) 325 MG/TAB TABLET PO SCH (08:55)
[2017-10-18] MEDS: MAGNESIUM HYDROXIDE 30 ML UDC PO PRN (08:55)
[2017-10-18] MEDS: ANASTROZOLE 1 MG TABLET PO SCH (08:55)
[2017-10-18] MEDS: FOLIC ACID 1 MG TABLET PO SCH (08:56)
[2017-10-18 16:00] VITALS: BP 121/58
[2017-10-18] MEDS: PANTOPRAZOLE 40 MG VIAL IV SCH (17:41)
--- NOTE | 2017-10-18 18:08 | NUR ---
MS/RN CLOSING NOTE PATIENT ALERT AND ORIENTED X3. ON OXYGEN AT 3L/MIN VIA NC. DENIES SOB. RESPIRATION REGULAR AND UNLABORED. DENIES PAIN. RFA G 20 PATENT AND SALINE LOCKED. GOOD AND GENTLE SKIN CARE RENDERED. ALL NEEDS ATTENDED AND ANTICIPATED. BED LOW AND LOCKED. SIDE RAILS UP X2. CALL LIGHT WITHIN REACH. WILL ENDORSE TO WEB PROGRAMMER.
--- NOTE | 2017-10-18 19:30 | NUR ---
MS RN OPENING NOTE Patient was seen lying in bed AAOx4, breathing on 3L O2 NC with no SOB, and no signs of acute distress. Daughter is at bedside and serves as a meat grader. Patient has no complaints or needs at this time. Patient is ambulating to bathroom with one person assist. SL 20g IV is in the right FA. Bed is in low/locked position, two side rails up, and call lima within reach. Will continue to monitor.
[2017-10-18 20:00] VITALS: BP 138/55
[2017-10-18 20:18] VITALS: BP 138/55
[2017-10-18] MEDS: HYDROCODONE/APAP 5/325MG 1 EACH TABLET PO PRN (21:16)
--- NOTE | 2017-10-18 21:20 | NUR ---
MS RN NOTE - Beulah Beulah 5/325 mg administered PO as ordered for reported pain of 8/10 located along the chest area - patient currently has breast cancer s/p left mastectomy. Will continue to monitor.
--- NOTE | 2017-10-18 22:00 | NUR ---
MS RN NOTE - Conversation with Dr. Bermudez I spoke with Dr. Bermudez over the phone regarding patient's scheduled procedure for pleural catheter insertion tomorrow on 10/19. Per Dr. Bermudez, I placed orders for NPO after midnight, stat CXR, CBC, CMP, PT/INR, and PTT. I asked if order for type and screen should be placed, Dr. Bermudez said he will see patient early tomorrow morning (10/19) and place additional orders if needed.
[2017-10-18] MEDS: ZOLPIDEM TARTRATE 5 MG TABLET PO PRN (22:15)
--- NOTE | 2017-10-18 22:20 | NUR ---
MS RN NOTE - Ambien Patient requested Ambien due to difficulty sleeping in hospital setting. Administered Ambien 5mg PO as ordered. Will continue to monitor.
[2017-10-19 06:21] LABS: BASOPHILS % (AUTO) 0.5 % (0.0-2.0); EOSINOPHILS % (AUTO) 2.1 % (0.0-6.0); HEMATOCRIT 27 % (33-45); HEMOGLOBIN 8.9 g/dL (11.5-14.8); LYMPHOCYTES # (AUTO) 1.6 /CMM (0.8-4.8); LYMPHOCYTES % (AUTO) 26.7 % (20.0-44.0); MEAN CORPUSCULAR HGB CONC 33 g/dl (31.0-36.0); MEAN CORPUSCULAR VOLUME 84 fL (82-100); MONOCYTES # (AUTO) 0.6 /CMM (0.1-1.30); MONOCYTES % (AUTO) 9.4 % (2.0-12.0); NEUTROPHILS # (AUTO) 3.8 /CMM (1.8-8.9); NEUTROPHILS % (AUTO) 61.3 % (43.0-81.0); PLATELET COUNT (AUTO) 192 /CMM (150-450); RDW COEFFICIENT OF VARIATION 19.6 (11.5-15.0); WHITE BLOOD COUNT (AUTO) 6.2 K/uL (4.3-11.0)
--- NOTE | 2017-10-19 06:27 | NUR ---
MS RN CLOSING NOTE Patient was seen sleeping in bed but awakened easily to name. She is AAOx3, breathing on 3L NC with no SOB, and no signs of acute distress. Patient slept well overnight with no complaints and no acute events; granddaughter remained at bedside. SL 20g IV is in the right FA. Patient has remained NPO since midnight for 11:00am procedure to place PleuroX tube; consent forms, checklist, and orders completed. Dr. Bermudez is due to see the patient this AM prior to the procedure. Patient's bed is in low/locked position, two side rails up, and call lima within reach. Will endorse patient care to day shift nurse.
[2017-10-19 06:41] LABS: ALANINE AMINOTRANSFERASE 12 U/L (12-78); ALKALINE PHOSPHATASE 93 U/L (46-116); ASPARTATE AMINOTRANSFERASE 39 U/L (15-37); BILIRUBIN,TOTAL 0.2 mg/dL (0.2-1.0); CALCIUM, SERUM 8.8 mg/dL (8.5-10.1); CARBON DIOXIDE 29 mmol/L (21-32); CHLORIDE 105 mmol/L (98-107); CREATININE 0.7 mg/dL (0.6-1.3); GLUCOSE 87 mg/dL (74-106); POTASSIUM 3.6 mmol/L (3.5-5.1); SODIUM SERUM 139 mmol/L (136-145); TOTAL PROTEIN, SERUM 6.7 g/dL (6.4-8.2); UREA NITROGEN, BLOOD 6 mg/dL (7-18)
[2017-10-19 06:45] LABS: INR 0.96 (0.87-1.13)
--- NOTE | 2017-10-19 07:10 | NUR ---
MS/RN OPENING NOTE PATIENT ALERT AND ORIENTED S3. DENIES SOB. PATIENT ON OXYGEN AT 3L/MIN VIA NC. RESPIRATION REGULAR AND UNLABORED. DENIES PAIN. NPO SINCE MIDNIGHT. RFA G 20 PATENT AND SALINE LOCKED. BED LOW AND LOCKED. SIDE RAILS UP X2. CALL LIGHT WITHIN REACH. WILL CONTINUE TO MONITOR.
[2017-10-19] MEDS: LEVOTHYROXINE SODIUM 50 MCG TABLET PO SCH (07:30)
[2017-10-19 08:00] VITALS: BP 131/64
[2017-10-19] MEDS: FERROUS SULFATE (325 MG) 325 MG/TAB TABLET PO SCH (09:00)
[2017-10-19] MEDS: ANASTROZOLE 1 MG TABLET PO SCH (09:00)
[2017-10-19] MEDS: FOLIC ACID 1 MG TABLET PO SCH (09:00)
[2017-10-19 14:00] VITALS: BP 131/67
[2017-10-19 16:00] VITALS: BP 136/59
[2017-10-19] MEDS: HYDROCODONE/APAP 5/325MG 1 EACH TABLET PO PRN (16:35)
[2017-10-19] MEDS: PANTOPRAZOLE 40 MG VIAL IV SCH (18:31)
--- NOTE | 2017-10-19 19:30 | NUR ---
MS RN OPENING NOTES: RECEIVED PT AWAKE LYING IN BED, IN SEMI FOWLERS POSITION, O2 AT 3L/MIN VIA NC SPO2-98%, NO SIGN OF SOB, MOUTH BREATHING, DAUGHTER PRESENT AT BED SIDE, NOT IN RESPIRATORY DISTRESS, NO C/O PAIN @ THIS TIME. IV ACCESS TO RFA, S/L, INTACT & PATENT. BED LOW AND LOCKED, CALL LIGHT WITHIN EASY REACH, WILL CONTINUE TO MONITOR
[2017-10-19] MEDS: ALBUTEROL FS 2.5 MG/3 ML VIAL.NEB NEB PRN (19:56)
[2017-10-19 20:00] VITALS: BP 106/60
[2017-10-19] MEDS: HYDROCODONE/APAP 10/325MG 1 EA TABLET PO PRN (21:08)
--- NOTE | 2017-10-19 21:08 | NUR ---
PRN NORCO GIVEN PT C/O PAIN 01/14 TO RIGHT CHEST, REQUESTED TO TAKE NORCO, ONLY TAB. PRN NORCO GIVEN. WILL REASSESS FOR EFFECTIVENESS.
[2017-10-19] MEDS: ZOLPIDEM TARTRATE 5 MG TABLET PO PRN (22:19)
--- NOTE | 2017-10-19 22:19 | NUR ---
PRN AMBIEN GIVEN PT REQUESTED FOR SLEEPING PILL, PRN AMBIEN GIVEN & WILL REASSESS FOR EFFECTIVENESS.
--- NOTE | 2017-10-20 06:33 | NUR ---
MS RN CLOSING NOTES: PT SLEPT WELL @ NIGHT IN SEMI FOWLERS POSITION, O2 AT 3L/MIN VIA NC SPO2-98%, NO SIGN OF SOB, NOT IN RESPIRATORY DISTRESS, NO C/O PAIN @ THIS TIME. NORCO WAS EFFECTIVE WHEN GIVEN. IV ACCESS TO RFA, S/L, INTACT & PATENT. DTR STAYED NEXT TO HER @ NIGHT. BED LOW AND LOCKED, ALL NEEDS ATTENDED TO & MET. CALL LIGHT WITHIN EASY REACH, WILL ENDORSE TO AM RN FOR CONTINUITY OF CARE
--- NOTE | 2017-10-20 07:05 | NUR ---
REPORT RECEIVED AT THE BEDSIDE. PATIENT IS RESTING COMFORTABLY IN BED. NO SOB OR DISTRESS NOTED AT THIS TIME. PATIENT DOES NOT APPEAR TO BE IN PAIN, NO FACIAL GRIMACE NOTED. BED IN A LOW POSITION, CALL LIGHT WITHIN PATIENT REACH. WILL MONITOR.
[2017-10-20] MEDS: HYDROCODONE/APAP 10/325MG 1 EA TABLET PO PRN ×3 (07:35→16:51)
[2017-10-20 08:00] VITALS: BP 132/62
[2017-10-20] MEDS: LEVOTHYROXINE SODIUM 50 MCG TABLET PO SCH (08:55)
[2017-10-20] MEDS: FOLIC ACID 1 MG TABLET PO SCH (08:55)
[2017-10-20] MEDS: FERROUS SULFATE (325 MG) 325 MG/TAB TABLET PO SCH (08:55)
[2017-10-20] MEDS: ANASTROZOLE 1 MG TABLET PO SCH (08:55)
[2017-10-20] MEDS: ENSURE ENLIVE 237 ML LIQUID (VANILLA) PO SCH ×3 (09:00→16:51)
--- NOTE | 2017-10-20 09:06 | NUR ---
PT REFUSED ENSURE FOR AM. STATES "I BROUGHT SOME FROM HOME."
[2017-10-20] MEDS: ALBUTEROL FS 2.5 MG/3 ML VIAL.NEB NEB PRN (09:17)
--- NOTE | 2017-10-20 18:43 | NUR ---
DISCHARGE INSTRUCTIONS GIVEN TO THE PATIENT FAMILY AND ABLE TO UNDERSTAND. ALL PAPERWORK SIGNED AND BELONGINGS ACCOUNTED FOR. IV REMOVED AND PRESSURE APPLIED, NO BLEEDING NOTED AT THE SITE. NEW RX GIVEN TO THE DAUGHTER. NO PICTURES OF SKIN NEEDED AT THIS TIME PATIENT SKIN IS INTACT. FLU AND PNEUMONIA VACCINES RECEIVED BY PATIENT IN MARCH. PATIENT FAMILY KNOLEDGEABLE ON CARE AND AWARE OF MD FOLLOWUPS. PATIENT LEFT IN STABLE CONDITION, VIA WHEEL CHAIR TO HOME. NO SOB OR DISTRESS NOTED. PATIENT DENIES PAIN.
== END 2017-10-20 18:00 | disposition home health service (06) | DRG 597 ==
LOC: ER 17:18 → TELE1 20:19 → TELE 10-16 05:50 → MED 10-16 09:54
PROVIDERS: ADMIT Internal Medicine; ATTEND Internal Medicine
PROC: 0W9B3ZZ Drainage of Left Pleural Cavity, Percutaneous Approach (ICD-10-PCS; principal; 2017-10-14)
PROC: 0DB68ZX Excision of Stomach, Via Natural or Artificial Opening Endoscopic, Diagnostic (ICD-10-PCS; 2017-10-15)
DX: C50.912 Malignant neoplasm of unspecified site of left female breast (principal); J96.21 Acute and chronic respiratory failure with hypoxia; J91.0 Malignant pleural effusion; E44.0 Moderate protein-calorie malnutrition; C78.00 Secondary malignant neoplasm of unspecified lung; D63.8 Anemia in other chronic diseases classified elsewhere; Z68.1 Body mass index [BMI] 19.9 or less, adult; K21.9 Gastro-esophageal reflux disease without esophagitis; Z85.3 Personal history of malignant neoplasm of breast; Z90.12 Acquired absence of left breast and nipple; Z79.899 Other long term (current) drug therapy; E78.5 Hyperlipidemia, unspecified; Z79.811 Long term (current) use of aromatase inhibitors; K59.00 Constipation, unspecified; K29.70 Gastritis, unspecified, without bleeding; I10 Essential (primary) hypertension; E87.6 Hypokalemia; D50.9 Iron deficiency anemia, unspecified
CPT/HCPCS: 36415; 71045-TC; 76942-TC; 80048-TC; 80053-TC; 82728-TC; 82746; 82962-TC; 83540-TC; 83735-TC; 84100-TC; 84443-TC; 85025-TC; 85610-TC; 85730-TC; 87081-TC; 88305-TC; 88313-TC; 88342; A4606; C9113; J1940; J2370; J2704; Z7610

== ENCOUNTER 2017-10-24 18:20 | Inpatient (IN) | payer MEDICARE, OTHER ==
[~2017-10-24] VITALS: Ht 160 cm; Wt 50.8 kg
[~2017-10-24 18:20] MED LIST changes: -CAPE500T15 PO; -GABA-534 PO; -LEVO500T90 PO
--- NOTE | 2017-10-24 18:20 | NUR ---
[id number] FROM HOME FOR SOB. H/O BREAST CA METS TO LUNGS, NAD NOTED, VSS, RESP EVEN AND UNLABORED, PT WAS PUT ON MONITOR, WAITING FOR MD LENNON.
[2017-10-24 18:39] LABS: BASOPHILS % (AUTO) 0.6 % (0.0-2.0); EOSINOPHILS % (AUTO) 1.4 % (0.0-6.0); HEMATOCRIT 34 % (33-45); HEMOGLOBIN 11.2 g/dL (11.5-14.8); LYMPHOCYTES # (AUTO) 2.1 /CMM (0.8-4.8); LYMPHOCYTES % (AUTO) 32.7 % (20.0-44.0); MEAN CORPUSCULAR HGB CONC 33 g/dl (31.0-36.0); MEAN CORPUSCULAR VOLUME 84 fL (82-100); MONOCYTES # (AUTO) 0.6 /CMM (0.1-1.30); MONOCYTES % (AUTO) 9.9 % (2.0-12.0); NEUTROPHILS # (AUTO) 3.5 /CMM (1.8-8.9); NEUTROPHILS % (AUTO) 55.4 % (43.0-81.0); PLATELET COUNT (AUTO) 357 /CMM (150-450); RDW COEFFICIENT OF VARIATION 17.6 (11.5-15.0); RED BLOOD CELL COUNT(AUTO) 4.08 MIL/uL (4.0-5.2); WHITE BLOOD COUNT (AUTO) 6.3 K/uL (4.3-11.0)
[2017-10-24 18:50] LABS: CALCIUM, SERUM 9.3 mg/dL (8.5-10.1); CARBON DIOXIDE 29 mmol/L (21-32); CHLORIDE 103 mmol/L (98-107); CREATININE 0.7 mg/dL (0.6-1.3); GLUCOSE 96 mg/dL (74-106); POTASSIUM 3.4 mmol/L (3.5-5.1); SODIUM SERUM 138 mmol/L (136-145); UREA NITROGEN, BLOOD 7 mg/dL (7-18)
[2017-10-24 18:53] LABS: INR 0.95 (0.85-1.15)
[2017-10-24 18:58] LABS: TROPONIN I < 0.017 ng/mL (0.00-0.056)
[2017-10-24 19:03] LABS: ALANINE AMINOTRANSFERASE 22 U/L (12-78); ALBUMIN 2.6 g/dL (3.4-5.0); ALKALINE PHOSPHATASE 148 U/L (46-116); ASPARTATE AMINOTRANSFERASE 56 U/L (15-37); B-TYPE NATRIURETIC PEPTIDE 98 PG/ML (0-125); BILIRUBIN,DIRECT 0.1 mg/dL (0.0-0.2); BILIRUBIN,TOTAL 0.4 mg/dL (0.2-1.0); TOTAL PROTEIN, SERUM 8.4 g/dL (6.4-8.2)
--- NOTE | 2017-10-24 19:40 | NUR ---
[facility] WAS CALLED FOR PANEL CALL AND THERESA HOFF WAS PAGED.
--- NOTE | 2017-10-24 19:50 | NUR ---
CALLED NURSING HISTORICAL INTERPRETER AND REQUESTED A TELE BED FOR THIS PT.
--- NOTE | 2017-10-24 20:03 | NUR ---
PT IS ASSIGNED TO [facility]#: 325-1, PT IS DIAGNOSED WITH SOB/ BREAST CANCER, AND THERESA HOFF IS THE ACCEPTING PLAY THERAPIST.
[2017-10-24 20:24] VITALS: BP 131/62
--- NOTE | 2017-10-24 21:10 | NUR ---
TELE/RN NOTES RECEIVE PATIENT FROM ER, ARRIVED ON A GURNEY ACCOMPANIED BY FAMILY MEMBER W/DX OF RESPIRATORY FAILURE, MORE FLUIDS ACCUMULATED INLUNGS, S/P THORACENTESIS ONE WEEK AGO WITH HX OF BREAST CANCER THAT MATESTASIZE TO LUNGS,SERBIAN SPEAKIN, DAUGHTER INVOLVE AND ESCALATOR INSTALLER. ALERT, ORIENTED X3, ABLE TO VERBALIZE NEEDS, APPEAR WEEK, DIMISHED BREATH SOUNDS, REQUIRING OXYGEN VOIA NC. SKIN WARM TO TOUCH, ORDERAND RECONSILATION, WITH NEEDED BREATHING TX AND PAIN MEDICATION. BELONGINGS CHECK, SKIN INTACT. PROVIDED PLAN OF CARE. WILL MONITOR.
[2017-10-24] MEDS ORDERED: ACETAMINOPHEN 325 MG TABLET PO PRN (21:30)
[2017-10-24] MEDS ORDERED: ONDANSETRON HCL/PF 4 MG/2 ML VIAL IVP PRN (21:30)
[2017-10-24] MEDS ORDERED: MAGNESIUM HYDROXIDE 30 ML UDC PO PRN (21:30)
[2017-10-24] MEDS ORDERED: ZOLPIDEM TARTRATE 5 MG TABLET PO PRN (21:30)
--- NOTE | 2017-10-24 22:12 | NUR ---
ORDER DIET 2G SODIUM
[2017-10-24 22:20] VITALS: BP 131/62
[2017-10-24] MEDS ORDERED: ALBUTEROL FS 2.5 MG/0.5 ML VIAL.NEB NEB PRN (23:00)
[2017-10-24] MEDS ORDERED: IPRATROPIUM NEB FS 0.5 MG/2.5 ML AMPUL.NEB NEB PRN (23:00)
[2017-10-24] MEDS ORDERED: FUROSEMIDE 20 MG/2 ML VIAL IV SCH (23:00)
[2017-10-24 23:52] VITALS: BP 123/64
[2017-10-25] VITALS: BP 123/64
[2017-10-25] MEDS: LORAZEPAM 1 MG TABLET PO SCH ×5 (00:01→23:29)
[2017-10-25 04:00] VITALS: BP 110/68
--- NOTE | 2017-10-25 06:26 | NUR ---
321-2 TELE/RN NOTES PATIENT IN BED, ABLE TO SLEEP DURING THE NIGHT, ON REQUIRE OXYGEN VIA NC FOR COMFORT, USES NSC, COOPERATIVE TO CARE,DENIES PAIN,SKIN WARM TO TOUCH, WILL CONTINUE TO MONITOR.WILL ENDORSE TO AM RN FOR BENJA, BED IN LOCK POSITION. WILL MONITOR. TELE READING SINUS RHYTHM
[2017-10-25 06:49] LABS: BASOPHILS % (AUTO) 0.4 % (0.0-2.0); EOSINOPHILS % (AUTO) 1.6 % (0.0-6.0); HEMATOCRIT 31 % (33-45); HEMOGLOBIN 10.2 g/dL (11.5-14.8); LYMPHOCYTES # (AUTO) 2.3 /CMM (0.8-4.8); MEAN CORPUSCULAR HGB CONC 33 g/dl (31.0-36.0); MEAN CORPUSCULAR VOLUME 84 fL (82-100); MONOCYTES # (AUTO) 0.7 /CMM (0.1-1.30); MONOCYTES % (AUTO) 11.8 % (2.0-12.0); NEUTROPHILS # (AUTO) 2.9 /CMM (1.8-8.9); NEUTROPHILS % (AUTO) 48.2 % (43.0-81.0); PLATELET COUNT (AUTO) 326 /CMM (150-450); RDW COEFFICIENT OF VARIATION 18.3 (11.5-15.0); RED BLOOD CELL COUNT(AUTO) 3.67 MIL/uL (4.0-5.2); WHITE BLOOD COUNT (AUTO) 6.1 K/uL (4.3-11.0)
[2017-10-25 06:53] LABS: CALCIUM, SERUM 8.9 mg/dL (8.5-10.1); CARBON DIOXIDE 30 mmol/L (21-32); CREATININE 0.7 mg/dL (0.6-1.3); GLUCOSE 84 mg/dL (74-106); MAGNESIUM 1.9 mg/dL (1.8-2.4); UREA NITROGEN, BLOOD 7 mg/dL (7-18)
[2017-10-25 06:56] LABS: CHLORIDE 102 mmol/L (98-107); POTASSIUM 3.2 mmol/L (3.5-5.1); SODIUM SERUM 138 mmol/L (136-145)
--- NOTE | 2017-10-25 07:05 | NUR ---
REPORT RECEIVED AT THE BEDSIDE. PATIENT IS SLEEPING AT THIS TIME. NO SOB OR DISTRESS NOTED. PATIENT DOES NOT APPEAR TO BE IN PAIN, NO FACIAL GRIMACE NOTED. HEART RATE SR IN THE 70S. BED IN A LOW POSITION, DAUGHTER IS AT THE BEDSIDE. WILL MONITOR.
[2017-10-25 08:00] VITALS: BP 101/60
[2017-10-25] MEDS: ANASTROZOLE 1 MG TABLET PO SCH (08:14)
[2017-10-25] MEDS: LEVOTHYROXINE SODIUM 50 MCG TABLET PO SCH (08:14)
[2017-10-25] MEDS: FOLIC ACID 1 MG TABLET PO SCH (08:14)
[2017-10-25] MEDS: FERROUS SULFATE (325 MG) 325 MG/TAB TABLET PO SCH (08:14)
[2017-10-25] MEDS ORDERED: POTASSIUM CHLORIDE 20 MEQ TAB.PRT.SR PO SCH (10:00)
[2017-10-25] MEDS: ENSURE ENLIVE 237 ML LIQUID (VANILLA) PO SCH ×2 (12:40→17:12)
[2017-10-25] MEDS: HYDROCODONE/APAP 5/325MG 1 EACH TABLET PO PRN (14:09)
[2017-10-25 16:00] VITALS: BP 110/62
[2017-10-25 20:00] VITALS: BP 101/59
--- NOTE | 2017-10-25 20:00 | NUR ---
ms/rn opening notes PATIENT IN BED, RESTING COMFORTABLY IN BED, SKIN WARM TO TOUCH, LUNGS CLEAR WITH DIMINISHED BREATHSOUNDS, RECIVED ENDORSEMENT FORM AM RN FOR PROCEDURE CRYSTAL AND WILL BE NPO BY MIDNIGHT, WILL CONTINUE TO MONITOR AND PROVIDED CARE, CALL LIGHTS WITHIN REACH, BED IN LOCK POSIITON .
[2017-10-25] MEDS: KETOROLAC TROMETHAMINE INJ 30 MG/ML VIAL IV PRN (23:29)
[2017-10-26 05:10] VITALS: BP 105/62
[2017-10-26 06:11] LABS: BASOPHILS % (AUTO) 0.3 % (0.0-2.0); EOSINOPHILS % (AUTO) 1.2 % (0.0-6.0); HEMATOCRIT 29 % (33-45); HEMOGLOBIN 9.7 g/dL (11.5-14.8); LYMPHOCYTES % (AUTO) 31.6 % (20.0-44.0); MEAN CORPUSCULAR HGB CONC 33 g/dl (31.0-36.0); MEAN CORPUSCULAR VOLUME 83 fL (82-100); MONOCYTES # (AUTO) 0.8 /CMM (0.1-1.30); MONOCYTES % (AUTO) 12.3 % (2.0-12.0); NEUTROPHILS # (AUTO) 3.4 /CMM (1.8-8.9); NEUTROPHILS % (AUTO) 54.6 % (43.0-81.0); PLATELET COUNT (AUTO) 298 /CMM (150-450); RDW COEFFICIENT OF VARIATION 18.2 (11.5-15.0); RED BLOOD CELL COUNT(AUTO) 3.47 MIL/uL (4.0-5.2); WHITE BLOOD COUNT (AUTO) 6.2 K/uL (4.3-11.0)
[2017-10-26 06:28] LABS: CALCIUM, SERUM 8.9 mg/dL (8.5-10.1); CARBON DIOXIDE 32 mmol/L (21-32); CHLORIDE 100 mmol/L (98-107); CREATININE 0.7 mg/dL (0.6-1.3); GLUCOSE 100 mg/dL (74-106); POTASSIUM 3.4 mmol/L (3.5-5.1); SODIUM SERUM 137 mmol/L (136-145); UREA NITROGEN, BLOOD 13 mg/dL (7-18)
[2017-10-26] MEDS: LORAZEPAM 1 MG TABLET PO SCH ×3 (06:51→17:42)
--- NOTE | 2017-10-26 07:20 | NUR ---
M/S RN- Assessment Patient awake, A/O x 3, denies pain, no c/o SOB, currently on 3lpm via nasal cannula, RFA saline lock is patent, intact with no signs of infiltration. Patient scheduled for left pleurx catheter today with Dr. Bermudez, consent signed by daughter, placed NPO post midnight. All needs attended and met. Fall and aspiration precautions maintained. Will continue with current medical management.
--- NOTE | 2017-10-26 07:21 | NUR ---
321-2 MS/RN OPENING NOTES PATIENT ABLE TO REST DURING THE NIGHT, MONITORING FOR ANY/S/S OF DISCOMFORT. BREATHING TX GIVEN BY RT, NEEDED PAIN MEDICATION GIVEN, CALL LIGHTS WITHIN REACH, BED ALARM ON
[2017-10-26] MEDS: LEVOTHYROXINE SODIUM 50 MCG TABLET PO SCH (07:30)
--- NOTE | 2017-10-26 07:55 | NUR ---
M/S RN - Notes Sent to OR for left pleurx catheter placement, pre-op checklist completed. RFA saline lock is flushing well. Endorsed to OR staff accordingly.
[2017-10-26] MEDS: ENSURE ENLIVE 237 ML LIQUID (VANILLA) PO SCH ×3 (08:00→17:42)
[2017-10-26] MEDS ORDERED: FENTANYL PF 100MCG/2ML AMPUL ONE (08:21)
[2017-10-26 09:30] VITALS: BP 96/58
--- NOTE | 2017-10-26 09:30 | NUR ---
M/S RN - Notes Patient came back from recovery room in no acute distress, left pleurx catheter in place with dressing clean, dry, intact. Post op orders by Dr. Bermudez noted and carried out. Daughter at bedside updated on plan of care.
[2017-10-26] MEDS: FERROUS SULFATE (325 MG) 325 MG/TAB TABLET PO SCH (09:49)
[2017-10-26] MEDS: ANASTROZOLE 1 MG TABLET PO SCH (09:49)
[2017-10-26] MEDS: FOLIC ACID 1 MG TABLET PO SCH (09:49)
[2017-10-26] MEDS: KETOROLAC TROMETHAMINE INJ 30 MG/ML VIAL IV PRN ×2 (10:00→16:13)
--- NOTE | 2017-10-26 10:15 | NUR ---
M/S RN - Md Order Daughter Rach informed me that pt has burning sensation and pain when she urinates. Dr. Disla made aware with order to do urinalysis.
[2017-10-26] MEDS ORDERED: POTASSIUM CHLORIDE 20 MEQ TAB.PRT.SR PO SCH (10:30)
[2017-10-26 16:00] VITALS: BP 155/60
[2017-10-26 16:45] LABS: APPEARANCE,URINE SL CLOUDY (CLEAR); BILIRUBIN,URINE 1+ (NEGATIVE); BLOOD, URINE 3+ Ery/uL (NEGATIVE); COLOR,URINE YELLOW (YELLOW); KETONES,URINE TRACE (NEGATIVE); LEUKOCYTE ESTERASE ,URINE 2+ (NEGATIVE); NITRITE, URINE NEGATIVE (NEGATIVE); PROTEIN,URINE 1+ mg/dl (NEGATIVE); UGLUCOSE NEGATIVE (NEGATIVE); UROBILINOGEN,URINE 0.2 EU/dL (0.2)
--- NOTE | 2017-10-26 17:09 | NUR ---
M/S RN - Notes No new events seen, remain afebrile, denies SOB, left sided chest pain managed by Toradol 15 mg IVP q6h PRN. All needs attended and met. Daughter at bedside updated on plan of care. Will continue with current medical management.
[2017-10-26 17:30] LABS: BACTERIA,URINE Few /HPF (None Seen); SQUAMOUS EPITHELIAL CELL,UR Few /HPF (None Seen); WBC,URINE 21-50 /HPF (0-3)
[2017-10-26 20:00] VITALS: BP 106/58
[2017-10-26 20:30] VITALS: BP 106/58
--- NOTE | 2017-10-26 20:30 | NUR ---
MS [employer] INITIAL NOTES RECEIVED PT IN BED SLEEPING BUT AROUSED TO TOUCH, CITIZEN OF [place] SPEAKING ONLY BUT GRAND DAUGHTER AT THE BEDSIDE TO TRANSLATE. DENIES ANY PAIN OR ANY DISCOMFORT. BREATHING EVEN AND NON-LABORED NOT IN ANY ACUTE DISTRESS NOTED. SALINE LOCK PATENT AND INTACT ON HER RIGHT FOREARM. KEPT HER WARM AND COMFORTABLE AT ALL TIMES. WILL CONTINUE MONITORING. CALL LIGHT AT REACH.
[2017-10-26] MEDS: HYDROCODONE/APAP 5/325MG 1 EACH TABLET PO PRN (23:15)
--- NOTE | 2017-10-26 23:16 | NUR ---
MS KENDRA NOTES C/O GENERALIZED PAIN NORCO TABLET GIVEN ORDERED. NO SIGNS OF ANY DISTRESS NOTED. WILL CONTINUE MONITORING. FAMILY REMAIN AT THE BEDSIDE.
[2017-10-27] MEDS: LORAZEPAM 1 MG TABLET PO SCH ×4 (00:03→17:06)
[2017-10-27] MEDS: HYDROCODONE/APAP 5/325MG 1 EACH TABLET PO PRN (06:24)
--- NOTE | 2017-10-27 07:00 | NUR ---
MS AIRCRAFT LOAD CONTROLLER CLOSING NOTES PT RESTING COMFORTABLY IN BED WITH NO SIGNS OF ANY ACUTE DISTRESS NOTED. STABLE MADELIN THE NIGHT AND ALL NEEDS MET. PLEURIX CATHETER INTACT AND NO SIGNS OF DRAINAGE NOTED, DRESSING DRY AND INTACT. DAUGHTER AT THE BEDSIDE TO HELPED TO TRANSLATE BECAUSE PT SPEAK ONLY SOUTH KOREAN. KEPT HER WARM AND COMFORTABLE AT ALL TIMES. REFUSED TO HAVE DVT PUMP. PLACE CALL LIGHT AT REACH. ENDORSE TO AM NURSE.
[2017-10-27 07:08] LABS: BASOPHILS % (AUTO) 0.4 % (0.0-2.0); EOSINOPHILS % (AUTO) 2.2 % (0.0-6.0); HEMATOCRIT 28 % (33-45); HEMOGLOBIN 9.4 g/dL (11.5-14.8); LYMPHOCYTES # (AUTO) 1.6 /CMM (0.8-4.8); MEAN CORPUSCULAR HGB CONC 34 g/dl (31.0-36.0); MEAN CORPUSCULAR VOLUME 83 fL (82-100); MONOCYTES # (AUTO) 0.7 /CMM (0.1-1.30); MONOCYTES % (AUTO) 11.7 % (2.0-12.0); NEUTROPHILS # (AUTO) 3.5 /CMM (1.8-8.9); NEUTROPHILS % (AUTO) 58.7 % (43.0-81.0); PLATELET COUNT (AUTO) 260 /CMM (150-450); RDW COEFFICIENT OF VARIATION 18.4 (11.5-15.0); RED BLOOD CELL COUNT(AUTO) 3.37 MIL/uL (4.0-5.2); WHITE BLOOD COUNT (AUTO) 5.9 K/uL (4.3-11.0)
--- NOTE | 2017-10-27 07:35 | NUR ---
MS RN OPENING NOTES RECEIVED PT LAYING IN BED, WITH HOB ELEVATED, SLEEPING COMFORTABLY. FAMILY AT BEDSIDE. RESPIRATIONS ARE EVEN AND UNLABORED, NOT IN ANY ACUTE DISTRESS NOTED. NO FACIAL GRIMACING NOTED. IV INTACT, DRESSING KEPT CLEAN AND DRY. IV FLUIDS INFUSING AT THIS TIME. SAFETY MEASURES ARE IN PLACE. CALL LIGHT IS LEFT WITHIN REACH. WILL CONTINUE TO MONITOR THROUGHOUT SHIFT.
[2017-10-27 07:50] LABS: CALCIUM, SERUM 8.9 mg/dL (8.5-10.1); CARBON DIOXIDE 30 mmol/L (21-32); CHLORIDE 102 mmol/L (98-107); CREATININE 0.6 mg/dL (0.6-1.3); GLUCOSE 91 mg/dL (74-106); MAGNESIUM 2.1 mg/dL (1.8-2.4); PHOSPHORUS 3.5 mg/dL (2.5-4.9); POTASSIUM 3.7 mmol/L (3.5-5.1); SODIUM SERUM 137 mmol/L (136-145); UREA NITROGEN, BLOOD 13 mg/dL (7-18)
[2017-10-27 08:00] VITALS: BP 115/54
[2017-10-27] MEDS: LEVOTHYROXINE SODIUM 50 MCG TABLET PO SCH (08:06)
[2017-10-27] MEDS: ENSURE ENLIVE 237 ML LIQUID (VANILLA) PO SCH ×3 (08:06→17:06)
[2017-10-27] MEDS: ANASTROZOLE 1 MG TABLET PO SCH (08:06)
[2017-10-27] MEDS: FOLIC ACID 1 MG TABLET PO SCH (08:06)
[2017-10-27] MEDS: FERROUS SULFATE (325 MG) 325 MG/TAB TABLET PO SCH (08:06)
[2017-10-27] MEDS: KETOROLAC TROMETHAMINE INJ 30 MG/ML VIAL IV PRN ×2 (13:56→19:46)
--- NOTE | 2017-10-27 13:57 | NUR ---
MS RN NOTES PT SEEN AND EXAMINED BY DR. FOLEY W/ POSSIBLE D/C TOMORROW.
--- NOTE | 2017-10-27 13:58 | NUR ---
MS RN NOTES ATIVAN WITHHELD D/T PT FEELING SLEEPY AND NOT SHOWING ANY SIGNS OF AGITATION. DTR CARLITA AT BEDSIDE AND AGREED. WILL CONTINUE TO MONITOR.
[2017-10-27] MEDS ORDERED: CEFTRIAXONE 1 G in IV D5W 50 ML IV SCH (14:00)
[2017-10-27] MEDS: ENSURE ENLIVE CHOC 237 ML CAN PO SCH ×2 (14:42→16:45)
[2017-10-27] MEDS: LIDOCAINE VISCOUS 2% UD 15 ML UDC MM SCH ×2 (14:42→22:00)
[2017-10-27 16:00] VITALS: BP 121/59
--- NOTE | 2017-10-27 18:22 | NUR ---
MS RN NOTES ALL DUE MEDS GIVEN, NEEDS MET AND RENDERED. PT IS NOT IN ANY APPARENT DISTRESS. REMAINS AFEBRILE. AWAKE AND RESPONSIVE. RESPIRATIONS ARE EVEN AND UNLABORED, NOT IN ANY ACUTE DISTRESS NOTED. DENIES ANY PAIN AT THIS TIME, NO SOB, N/V. PLEURIX SITE INTACT, NO DRAINAGE NOTED, DRESSING KEPT CLEAN AND DRY. IV SITE INTACT, NO INFILTRATION NOTED. DRESSING KEPT CLEAN AND DRY. KONSTANTIN ZAZUETA REMAINS AT BEDSIDE. SAFETY MEASURES ARE IN PLACE. PT CONTINUES TO REFUSE THE DVT PUMPS. CALL LIGHT IS LEFT WITHIN REACH. WILL ENDORSE TO NEXT SHIFT FOR CONTINUITY OF CARE.
--- NOTE | 2017-10-27 19:46 | NUR ---
MS KENDRA NOTES C/O GENERALIZED PAIN SPECIALLY LEFT LATERAL CHEST WHERE THE PLEURIX SITE, TORADOL ADMINISTERED BY ANOTHER NURSE RV MADELIN IVP ORDERED. PT AWAKE AND ALERT , FAMILY AT THE BEDSIDE.
[2017-10-27 20:07] VITALS: BP 100/66
--- NOTE | 2017-10-28 00:08 | NUR ---
MS LENS ASSISTANT NOTES CHECKED THE PATENT TO GIVE THE ATIVAN ROUTINE BUT PT REMAINS SLEEPING AT THIS TIME.AND PER PT DAUGHTER JUST GIVE IT LATER . BREATHING EVEN AND NON LABORED NOT IN ANY ACUTE DISTRESS NOTED. KEPT HER WARM AND COMFORTABLE AT ALL TIMES. WILL CONTINUE TO MONITOR.
[2017-10-28] MEDS: HYDROCODONE/APAP 5/325MG 1 EACH TABLET PO PRN ×2 (04:26→12:11)
[2017-10-28] MEDS: LIDOCAINE VISCOUS 2% UD 15 ML UDC MM SCH ×2 (04:27→14:00)
[2017-10-28] MEDS: LORAZEPAM 1 MG TABLET PO SCH ×3 (04:27→12:11)
--- NOTE | 2017-10-28 04:30 | NUR ---
MS KENDRA NOTES PT WOKE UP AND PT DAUGHTER CALLED AND ASKING TO GIVE HER ATIVAN AND NORCO TABLET BECAUSE PT ON PAIN ON HER LEFT LATERAL CHEST AND SEEM GETTING ANXIOUS. BREATHING EVEN AND NON-LABORED. PT TOLERATED WELL NO ASPIRATION NOTED. KEPT HER WARM AND COMFORTABLE AT ALL TIMES. EDUCATE DAUGHTER FOR POSSIBLE SIDE EFFECT. WILL CONTINUE TO MONITOR.PLACE CALL LIGHT AT REACH.
[2017-10-28 06:44] LABS: BASOPHILS % (AUTO) 0.4 % (0.0-2.0); EOSINOPHILS % (AUTO) 3.6 % (0.0-6.0); HEMATOCRIT 28 % (33-45); HEMOGLOBIN 9.3 g/dL (11.5-14.8); LYMPHOCYTES # (AUTO) 1.8 /CMM (0.8-4.8); LYMPHOCYTES % (AUTO) 31.5 % (20.0-44.0); MEAN CORPUSCULAR HGB CONC 34 g/dl (31.0-36.0); MEAN CORPUSCULAR VOLUME 83 fL (82-100); MONOCYTES # (AUTO) 0.7 /CMM (0.1-1.30); MONOCYTES % (AUTO) 12.2 % (2.0-12.0); NEUTROPHILS # (AUTO) 2.9 /CMM (1.8-8.9); NEUTROPHILS % (AUTO) 52.3 % (43.0-81.0); PLATELET COUNT (AUTO) 273 /CMM (150-450); RDW COEFFICIENT OF VARIATION 17.7 (11.5-15.0); RED BLOOD CELL COUNT(AUTO) 3.31 MIL/uL (4.0-5.2); WHITE BLOOD COUNT (AUTO) 5.6 K/uL (4.3-11.0)
--- NOTE | 2017-10-28 06:58 | NUR ---
MS HORSERADISH GRINDER CLOSING NOTES PT SLEEPING COMFORTABLY IN BED WITHOUT ANY ACUTE DISTRESS NOTED. BREATHING EVEN AND NON-LABORED. NO SIGNS OF ANY SHORTNESS OF BREATH. KEPT HER WARM AND COMFORTABLE AT ALL TIMES. ALL DUE MEDS GIVEN AND ALL NEEDS MET. DAUGHTER LEFT FOR WHILE BUT SHE'S TELLING SHE'S COMING BACK LATER. BED ALARM SET FOR PT SAFETY. WILL ENDORSE TO AM NURSE FOR CONTINUITY OF CARE. PLACE CALL LIGHT AT REACH.
--- NOTE | 2017-10-28 07:16 | NUR ---
MS/RN OPENING NOTE PATIENT ALERT AND ORIENTED X3. DENIES SOB. RESPIRATION REGULAR AND UNLABORED. PATIENT IN NO APPARENT DISTRESS. IV PATENT AND SALINE LOCKED. BED LOW AND LOCKED. SIDE RAILS UP X2. CALL LIGHT WITHIN REACH. WILL CONTINUE TO MONITOR.
[2017-10-28 07:24] LABS: CALCIUM, SERUM 8.9 mg/dL (8.5-10.1); CARBON DIOXIDE 31 mmol/L (21-32); CHLORIDE 104 mmol/L (98-107); CREATININE 0.7 mg/dL (0.6-1.3); GLUCOSE 107 mg/dL (74-106); MAGNESIUM 2.2 mg/dL (1.8-2.4); PHOSPHORUS 3.2 mg/dL (2.5-4.9); POTASSIUM 3.8 mmol/L (3.5-5.1); SODIUM SERUM 140 mmol/L (136-145); UREA NITROGEN, BLOOD 12 mg/dL (7-18)
[2017-10-28 08:00] VITALS: BP 124/64
[2017-10-28] MEDS: ENSURE ENLIVE CHOC 237 ML CAN PO SCH (08:42)
[2017-10-28] MEDS: ENSURE ENLIVE 237 ML LIQUID (VANILLA) PO SCH ×2 (09:31→12:12)
[2017-10-28] MEDS: FOLIC ACID 1 MG TABLET PO SCH (09:32)
[2017-10-28] MEDS: LEVOTHYROXINE SODIUM 50 MCG TABLET PO SCH (09:32)
[2017-10-28] MEDS: ANASTROZOLE 1 MG TABLET PO SCH (09:32)
[2017-10-28] MEDS: FERROUS SULFATE (325 MG) 325 MG/TAB TABLET PO SCH (09:32)
[2017-10-28 15:00] VITALS: BP 120/68
--- NOTE | 2017-10-28 15:00 | NUR ---
MS/RN NOTE RECEIVED ORDER FROM DR PONCE TO DRAIN PLEUREX. THE ORDER READ BACK, VERIFIED. NOTED AND CARRIED OUT. PLEUREX DRAINAGE DONE AND REMOVED 350 CC OF SEROSANGUINEOUS FLUID. THE PATIENT TOLERATED THE PROCEDURE WELL. VITAL SIGNS STABLE. RESPIRATION REGULAR AND UNLABORED. DENIES SOB. DENIES PAIN. CATHETER INSERTION SITE WITH NO S/S INFECTION AND NO BLEEDING. WILL CONTINUE TO MONITOR
[2017-10-28 15:30] VITALS: BP 121/67
[2017-10-28 16:00] VITALS: BP 117/62
--- NOTE | 2017-10-28 16:00 | NUR ---
MS/RN CLOSING NOTE PATIENT ALERT AND ORIENTED X3. DENIES SOB. RESPIRATION REGULAR AND UNLABORED. PATIENT IN NO APPARENT DISTRESS. DISCHARGE INSTRUCTION GIVEN TO THE PATIENT AND THE DAUGHTER. THEY VERBALIZED UNDERSTANDING. PRESCRIPTION GIVEN TO THE DAUGHTER AND THE COPY IS PLACED IN THE CHART. THE PATIENT IS PICKED UP ON A GURNEY V THE AMBULANCE GOING TO HOME. THE DAUGHTER ACCOMPANIED. THE PATIENT LEFT THE HOSPITAL IN STABLE CONDITION.
== END 2017-10-28 16:23 | disposition home health service (06) | DRG 597 ==
LOC: ER 18:27 → TELE 20:08 → MED 10-25 09:24
PROVIDERS: ADMIT Nurse Practitioner Acute Care; ATTEND Nurse Practitioner Acute Care
PROC: 0WHB33Z Insertion of Infusion Device into Left Pleural Cavity, Percutaneous Approach (ICD-10-PCS; principal; 2017-10-26 08:36)
DX: C50.912 Malignant neoplasm of unspecified site of left female breast (principal); J96.21 Acute and chronic respiratory failure with hypoxia; E44.0 Moderate protein-calorie malnutrition; J91.0 Malignant pleural effusion; E88.09 Other disorders of plasma-protein metabolism, not elsewhere classified; C79.9 Secondary malignant neoplasm of unspecified site; R13.10 Dysphagia, unspecified; Z99.81 Dependence on supplemental oxygen; J98.11 Atelectasis; N39.0 Urinary tract infection, site not specified; Z68.1 Body mass index [BMI] 19.9 or less, adult; D63.8 Anemia in other chronic diseases classified elsewhere; E78.5 Hyperlipidemia, unspecified; E87.6 Hypokalemia; I10 Essential (primary) hypertension; K21.9 Gastro-esophageal reflux disease without esophagitis; Z90.12 Acquired absence of left breast and nipple; M62.50 Muscle wasting and atrophy, not elsewhere classified, unspecified site; Z79.899 Other long term (current) drug therapy
CPT/HCPCS: 36415; 71045-TC; 71250-TC; 80048-TC; 80076-TC; 81000-TC; 83735-TC; 83880; 84100-TC; 84484-TC; 85025-TC; 85730-TC; 87081-TC; 87086-TC; 94799-TC; A4606; A6402; J0690; J0696; J1885; J1940; J3010; J7060; Z7610

== ENCOUNTER 2017-12-01 17:51 | Inpatient (IN) | payer MEDICARE, OTHER ==
[~2017-12-01] VITALS: Ht 121.9 cm; Wt 45.4 kg
[~2017-12-01 17:51] MED LIST changes: -METR500T PO
--- NOTE | 2017-12-01 17:55 | NUR ---
"SENT BY DR. UP FOR LOW K 2.9", DENIES CP/SOB. NAD NOTED, VSS, RESP EVEN AND UNLABORED, PT WAS PUT ON MONITOR, WAITING FOR MD LENNON.
[2017-12-01 18:57] LABS: BASOPHILS # (AUTO) 0.1 /CMM (0.0-0.2); BASOPHILS % (AUTO) 0.6 % (0.0-2.0); EOSINOPHILS % (AUTO) 4.7 % (0.0-6.0); HEMATOCRIT 32 % (33-45); HEMOGLOBIN 10.7 g/dL (11.5-14.8); LYMPHOCYTES # (AUTO) 1.8 /CMM (0.8-4.8); LYMPHOCYTES % (AUTO) 21.4 % (20.0-44.0); MEAN CORPUSCULAR HEMOGLOBIN 28 PG (26.0-33.0); MEAN CORPUSCULAR HGB CONC 33 g/dl (31.0-36.0); MEAN CORPUSCULAR VOLUME 83 fL (82-100); MONOCYTES # (AUTO) 0.8 /CMM (0.1-1.30); MONOCYTES % (AUTO) 9.1 % (2.0-12.0); NEUTROPHILS # (AUTO) 5.3 /CMM (1.8-8.9); NEUTROPHILS % (AUTO) 64.2 % (43.0-81.0); PLATELET COUNT (AUTO) 161 /CMM (150-450); RED BLOOD CELL COUNT(AUTO) 3.91 MIL/uL (4.0-5.2); WHITE BLOOD COUNT (AUTO) 8.4 K/uL (4.3-11.0)
[2017-12-01 19:10] LABS: INR 1.03 (0.85-1.15)
[2017-12-01 19:45] LABS: ALANINE AMINOTRANSFERASE 25 U/L (12-78); ALBUMIN 1.8 g/dL (3.4-5.0); ALKALINE PHOSPHATASE 259 U/L (46-116); ASPARTATE AMINOTRANSFERASE 56 U/L (15-37); BILIRUBIN,DIRECT 0.2 mg/dL (0.0-0.2); BILIRUBIN,TOTAL 0.6 mg/dL (0.2-1.0); CALCIUM, SERUM 8.8 mg/dL (8.5-10.1); CARBON DIOXIDE 34 mmol/L (21-32); CHLORIDE 104 mmol/L (98-107); CREATININE 0.6 mg/dL (0.6-1.3); GLUCOSE 126 mg/dL (74-106); SODIUM SERUM 140 mmol/L (136-145); TOTAL PROTEIN, SERUM 6.5 g/dL (6.4-8.2); UREA NITROGEN, BLOOD 7 mg/dL (7-18)
[2017-12-01 19:48] LABS: POTASSIUM 2.7 mmol/L (3.5-5.1)
[2017-12-01 20:00] VITALS: BP 123/69
--- NOTE | 2017-12-01 20:32 | NUR ---
EPIC PAGED, SUPERVISOR IN CIRCUIT TESTING
[2017-12-01] MEDS ORDERED: Magnesium 1GM/D5W 100ML PREMIX 100 ML IV ONE ×2 (20:34→21:46)
--- NOTE | 2017-12-01 20:35 | NUR ---
CALLED NURSING SUP. FOR TELE BED
[2017-12-01] MEDS ORDERED: POTASSIUM CL. PREMIX PERIPHER. 50 ML ONE ×2 (20:38→21:47)
[2017-12-01] MEDS: POTASSIUM CL. PREMIX PERIPHER. 50 ML IV SCH ×2 (20:50→21:58)
[2017-12-01] MEDS: Magnesium 1GM/D5W 100ML PREMIX 100 ML IV SCH ×2 (20:51→21:59)
[2017-12-01] MEDS ORDERED: IV NS 0.9% 1,000 ML IV ONE (21:00)
--- NOTE | 2017-12-01 21:11 | NUR ---
TELE 329 FOR HYPOKALEMIA, ADMITTING
[2017-12-01] MEDS ORDERED: Z GUARD REMEDY 2 OZ OINT TP PRN (21:30)
[2017-12-01] MEDS ORDERED: ONDANSETRON HCL/PF 4 MG/2 ML VIAL IVP PRN (21:30)
[2017-12-01] MEDS ORDERED: ACETAMINOPHEN 325 MG TABLET PO PRN (21:30)
[2017-12-01] MEDS ORDERED: MAG HYDROX/AL HYDROX/SIMETH 30 ML UDC PO PRN (21:30)
[2017-12-01] MEDS ORDERED: MORPHINE SULFATE INJ 2 MG/ML DISP.SYRIN IV PRN (21:30)
[2017-12-01] MEDS ORDERED: ZOLPIDEM TARTRATE 5 MG TABLET PO PRN (21:30)
[2017-12-01] MEDS ORDERED: MAGNESIUM HYDROXIDE 30 ML UDC PO PRN (21:30)
[2017-12-01 22:30] VITALS: BP 123/69
--- NOTE | 2017-12-01 23:40 | NUR ---
tele/rn notes skin intact and dry, with left dulce cath internal placed and dressing applied on pleral effusion siteon leftside of chest
[2017-12-02] VITALS: BP 123/69
[2017-12-02] MEDS: POTASSIUM CL. PREMIX PERIPHER. 50 ML IV SCH ×2 (01:32→02:30)
--- NOTE | 2017-12-02 01:58 | NUR ---
tele/rn notes RECEIVED NEW ADMITTED PATIENT FROM ER ON A GURNEY ACCOMPANIED BY DAUGHTER, A 72 YR OLD [place]UG[place], SPEAKS ONLY PORTUGUESE, DAUGHTER TRANSLATES IN INDONESIAN , ALERT, ORIENTED X3, ABLE TO VERBALIZE NEEDS, WITH GOOD EYE CONTACT , WEAK IN APPEARANCE, SKIN FRAGILE, WAS SENT BT PCP DR UP DUE TO LOW POTASSIUM LEVEL AT 2.9, ER POTASSIUM LEVEL AT 2.7, REQUIRING COVERAGE, 2 BAGS OF POTASSIUM REPLACED AT THE ER AND 2 BAGS MAGNESIUM REPLACED, TO ADMINISTER 2 MORE BAGS TO COMPLETE A 200ML OF POTASSIUM. 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 PER DAUGHTER PLEURAL EFFUSION DRAIN OF 300CC.LAST CHEMOTHERAPY LAST WEEK. IV ON RIGHT AC. CALL LIGHTS WITHIN REACH, PROVIDED ROOM ORIENTATION, BELONGINGS CHECK, BED IN LOCK POSIOTN, WILL MONITOR AND PROVIDE CARE,MD FOLEY ADMITTED PATIENT. WILL MONITOR, MEDS REPORTED FROM HOME AND RECONCILED.
[2017-12-02 04:00] VITALS: BP 129/73
--- NOTE | 2017-12-02 06:23 | NUR ---
329-1 TELE/RN closing, PATIENT IN BED require extensive assistance , cooperative to care, on oxygen via nc for breathing comfort, monitored and replaced iv potassium, iv site on right ac patent, monitoring for any s/s of infiltration. assist and keep comfortable, will endorse to am rn for kaiden. call lights within reach.
[2017-12-02 06:25] LABS: BASOPHILS % (AUTO) 0.2 % (0.0-2.0); EOSINOPHILS % (AUTO) 3.6 % (0.0-6.0); HEMATOCRIT 31 % (33-45); HEMOGLOBIN 10.1 g/dL (11.5-14.8); LYMPHOCYTES # (AUTO) 1.6 /CMM (0.8-4.8); LYMPHOCYTES % (AUTO) 19.3 % (20.0-44.0); MEAN CORPUSCULAR HEMOGLOBIN 28 PG (26.0-33.0); MEAN CORPUSCULAR HGB CONC 33 g/dl (31.0-36.0); MEAN CORPUSCULAR VOLUME 85 fL (82-100); MONOCYTES # (AUTO) 0.7 /CMM (0.1-1.30); MONOCYTES % (AUTO) 8.3 % (2.0-12.0); NEUTROPHILS # (AUTO) 5.6 /CMM (1.8-8.9); NEUTROPHILS % (AUTO) 68.6 % (43.0-81.0); PLATELET COUNT (AUTO) 156 /CMM (150-450); RDW COEFFICIENT OF VARIATION 17.3 (11.5-15.0); RED BLOOD CELL COUNT(AUTO) 3.64 MIL/uL (4.0-5.2); WHITE BLOOD COUNT (AUTO) 8.2 K/uL (4.3-11.0)
[2017-12-02 06:55] LABS: CALCIUM, SERUM 8.3 mg/dL (8.5-10.1); CARBON DIOXIDE 31 mmol/L (21-32); CHLORIDE 105 mmol/L (98-107); CREATININE 0.5 mg/dL (0.6-1.3); GLUCOSE 87 mg/dL (74-106); MAGNESIUM 2.1 mg/dL (1.8-2.4); POTASSIUM 3.4 mmol/L (3.5-5.1); SODIUM SERUM 139 mmol/L (136-145); UREA NITROGEN, BLOOD 5 mg/dL (7-18)
[2017-12-02] MEDS ORDERED: MORPHINE SULFATE INJ 4 MG/ML DISP.SYRIN IV PRN (08:33)
[2017-12-02 09:25] VITALS: BP 113/59
[2017-12-02] MEDS ORDERED: POTASSIUM CHLORIDE 20 MEQ TAB.PRT.SR PO SCH (12:00)
[2017-12-02] MEDS: HYDROCODONE/APAP 5/325MG 1 EACH TABLET PO PRN ×2 (15:10→20:49)
[2017-12-02] MEDS ORDERED: POTASSIUM CHLORIDE 20 MEQ TAB.PRT.SR PO ONE (16:00)
[2017-12-02 16:23] VITALS: BP 109/60
--- NOTE | 2017-12-02 19:03 | NUR ---
RN CLOSING NOTE PT IN BED RESTING. ALL PT NEEDS ANTICIPATED AND MET. SAFETY MEASURES IN PLACE, CALL LIGHT IN REACH. WILL ENDORSE TO MANAGER INVESTMENT BANKING FOR BENJA.
--- NOTE | 2017-12-02 19:30 | NUR ---
RN NOTES RECEIVED PATIENT IN BED AWAKE. AO X 3, ABLE TO MAKE NEEDS KNOWN. NO ACUTE DISTRESS NOTED. MONITORED FOR PAIN. IV SITE PATENT, INTACT; FLUSHED. LEFT PLEURAL VAC TUBING DRESSING INTACT. SAFETY REMINDERS GIVEN. GRANDDAUGHTER AT BEDSIDE. ON LOW BED WITH BILATERAL UPPER SIDE RAILS UP. CALL OLIVAS WITHIN EASY REACH. WILL CONTINUE TO MONITOR.
[2017-12-02 20:00] VITALS: BP 110/62
--- NOTE | 2017-12-03 06:13 | NUR ---
RN NOTES PATIENT ASLEEP, EASILY AROUSABLE. RESPIRATIONS EVEN. NO SIGNS OF PAIN NOTED. NEEDS ATTENDED. KEPT CLEAN, DRY, AND COMFORTABLE. SAFETY PRECAUTIONS AND COMFORT MEASURES IN PLACE. DAUGHTER AT BEDSIDE. WILL GIVE REPORT TO DAY SHIFT FOR CONTINUITY OF CARE.
[2017-12-03 07:37] LABS: CALCIUM, SERUM 8.6 mg/dL (8.5-10.1); CARBON DIOXIDE 32 mmol/L (21-32); CHLORIDE 104 mmol/L (98-107); CREATININE 0.5 mg/dL (0.6-1.3); GLUCOSE 116 mg/dL (74-106); POTASSIUM 3.4 mmol/L (3.5-5.1); SODIUM SERUM 140 mmol/L (136-145); UREA NITROGEN, BLOOD 6 mg/dL (7-18)
--- NOTE | 2017-12-03 07:51 | NUR ---
MS RN OPENING NOTES RECEIVED PT FROM NIGHTSHIFT NURSE IN STABLE CONDITION. PT IS A/O 3. SHE COMPLAINS OF SOME SOB. SHE IS CURRENTLY ON 2L VIA NC AND SATING WELL. DAUGHTER AT BEDSIDE AND REQUESTING BREATHING TX. NONE ORDERED AT THIS TIME. WILL F/U WITH . IV TO RIGHT FA NOTED TO BE PATENT AND INTACT. NO REDNESS OR SIGNS OF INFILTRATION NOTED. BED IN LOW LOCKED POSITION, SIDE RAILS UP X2, CALL LIGHT WITHIN REACH. WILL CONTIN UE TO MONITOR
[2017-12-03 08:00] VITALS: BP 108/60
--- NOTE | 2017-12-03 08:21 | NUR ---
MS RN NOTES: BREATHING TX F/U DR. KENNEDY MADE AWARE OF PT'S SOB SYMPTOMS AND REQUEST FOR PRN BREATHING TX. PER . ORDER ALBUTEROL ALONG WITH ATROVENT PRN Q4HRS FOR SOB. MD ALSO MADE AWARE OF PT'S MOI CATH AND RECURRING PLEURAL EFFUSIONS. PER MD "IT IS OKAY TO DRAIN FLUID USING CATHETER".
[2017-12-03] MEDS ORDERED: IPRATROPIUM NEB FS 0.5 MG/2.5 ML AMPUL.NEB NEB PRN (08:30)
[2017-12-03] MEDS ORDERED: ALBUTEROL FS 2.5 MG/0.5 ML VIAL.NEB NEB PRN (08:30)
--- NOTE | 2017-12-03 09:50 | NUR ---
MS RN NOTES: UPDATE DR KENNEDY MADE AWARE THAT PT'S MEDICATION RECONCILIATION HAS NOT BEEN REVIEWED, STATES THAT HE WILL F/U AND TAKE A LOOK AT IT. HE WAS ALSO MADE AWARE THAT THE PT'S K+ IS 3.4. NO NEW ORDERS TO REPLACE AT THIS TIME, HOWEVER STATES THAT HE WILL PLACE THE ORDERS AT A LATER TIME
[2017-12-03] MEDS ORDERED: POTASSIUM CHLORIDE 20 MEQ TAB.PRT.SR PO SCH (11:00)
--- NOTE | 2017-12-03 12:22 | NUR ---
MS RN NOTES: K+ REPLACEMENT PT'S K+ OF 3.4 WAS REPLACED WITH 20MEQ OF K+. BMP ORDERED FOR THE AM
[2017-12-03 16:00] VITALS: BP 110/69
--- NOTE | 2017-12-03 17:58 | NUR ---
MS RN NOTES: PLEURAL DRAINAGE 200 CC OF SEROSANGUINEOUS PLEURAL FLUID WAS DRAINED THROUGH PT'S PLEURX. NO COMPLICATIONS NOTED DURING OR POST DRAINAGE. BREATHING REMAINS EVEN AND UNLABORED. PT SATING ABOVE 92%. SHE DENIES ANY PAIN OR DISCOMFORT
--- NOTE | 2017-12-03 18:59 | NUR ---
MS RN CLOSING NOTES PT REMAINS STABLE ALL NEEDS WERE MET DURING SHIFT AND ORDERS CARRIED OUT ACCORDINGLY .ALL DUE MEDS GIVEN. WOUND AND SKIN CARE RENDERED. SHE CONTINUES TO DENY PAIN. NO SOB NOTED. SAFETY MEASURES REMAIN IN PLACE. DAUGHTER AT BEDSIDE. WILL ENDORSE OT NIGHTSHIFT NURSE FOR BENJA
--- NOTE | 2017-12-03 19:30 | NUR ---
RN OPENING NOTES RECEIVED PT IN BED, ASLEEP BUT EASILY AROUSABLE, ALERT AND ORIENTED X 3, NO SOB NOTED, BREATHING EVEN AND UNLABORED AT THIS TIME. ALL PATIENT'S NEEDS ATTENDED TO AT THIS TIME. PT' DAUGHTER CARLITA, AT BEDSIDE. CALL LIGHT PLACED WITHIN EASY REACH. BED IN LOW POSITION AND LOCKED IN PLACE. WILL CONTINUE TO MONITOR.
[2017-12-03 20:00] VITALS: BP 133/68
--- NOTE | 2017-12-04 06:45 | NUR ---
RN CLOSING NOTES PATIENT IN BED, ASLEEP BUT EASILY AROUSABLE, RECEIVING O2 VIA NC @2LPM, O2 SAT WNL. PT WITH NO EPISODE OF SOB WITHIN THE SHIFT, BREATHING EVEN AND UNLABORED, IN NO ACUTE DISTRESS. PATIENT SLEPT WELL WITH GRAND DAUGHTER PRESENT AT BEDSIDE. ALL PATIENT'S NEEDS ATTENDED TO. PLACED CALL LIGHT WITHIN EASY REACH. WILL ENDORSE TO AM SHIFT NURSE FOR CONTINUITY OF CARE.
[2017-12-04 07:14] LABS: CALCIUM, SERUM 8.6 mg/dL (8.5-10.1); CARBON DIOXIDE 31 mmol/L (21-32); CHLORIDE 105 mmol/L (98-107); CREATININE 0.5 mg/dL (0.6-1.3); GLUCOSE 107 mg/dL (74-106); POTASSIUM 3.6 mmol/L (3.5-5.1); SODIUM SERUM 140 mmol/L (136-145); UREA NITROGEN, BLOOD 6 mg/dL (7-18)
[2017-12-04 07:16] LABS: THYROID STIMULATING HORMONE 6.398 uIU/mL (0.358-3.74)
--- NOTE | 2017-12-04 07:44 | NUR ---
MS RN OPENING NOTES RECEIVED PT LAYING IN BED WITH HOB SLIGHTLY ELEVATED. PT APPEARS TO BE A/O X3, RESPIRATIONS ARE EVEN AND UNLABORED, NOT IN ANY ACUTE DISTRESS NOTED. DENIES ANY PAIN AT THIS TIME. NO C/O N/V, SOB NOTED. IV SITE INTACT, NO INFILTRATION NOTED. PLEUREX INTACT, DRESSING KEPT CLEAN AND DRY. INSTRUCTED PT TO USE CALL LIGHT WHEN ASSISTANCE IS NEEDED, CALL LIGHT IS LEFT WITHIN REACH. SAFETY MEASURES ARE IN PLACE. WILL MONITOR FOR CONTINUITY OF CARE.
[2017-12-04 08:00] VITALS: BP 112/63
[2017-12-04 10:51] VITALS: BP 119/60
[2017-12-04 10:52] VITALS: BP 123/76
[2017-12-04 10:53] VITALS: BP 104/47
--- NOTE | 2017-12-04 10:53 | NUR ---
MS MENCHACA NOTES --ORTHOSTATICS LAYING: BP 119/60, HR 72 SITTING: BP 123/76, HR 75 STANDING: BP 104/47 HR 76 YORDAN CARDENAS MADE AWARE. Addendum: 12/04/17 at 1055 by JOSUÉ FRAZIER RN WRONG PATIENT. Addendum: 12/04/17 at 1058 by JOSUÉ FRAZIER RN WRONG SET OF VITALS.
--- NOTE | 2017-12-04 16:46 | NUR ---
STRUCTURAL ANALYSIS ENGINEER NOTE PT DISCHARGED TO HOME VIA RNEY IN STABLE CONDITION ACCOMPANIED BY EMT PERSONNEL. ALL NEEDS MET AND RENDERED. PT IS A/O X3, AFEBRILE. RESPIRATIONS ARE EVEN AND UNLABORED, NOT IN ANY ACUTE DISTRESS NOTED. PT DENIES ANY PAIN AT THIS TIME, NO C/O SOB, N/V. IV SITE REMOVE, APPLIED PRESSURE AND TOLERATED WELL. ABDOMEN IS SOFT AND NONDISTENDED. DENIES ANY BLADDER DISCOMFORT. PLEURIX CHEST TUBE INTACT. DRESSING KEPT CLEAN AND DRY, NO S/SX OF INFECTION NOTED. ID BAND REMOVED. ALL BELONGINGS SENT WITH PATIENT. EXPLAINED DISCHARGE PAPERWORK TO PT AND DTR CARLITA WHO IS AT BEDSIDE. PT LEFT IN STABLE CONDITION.
== END 2017-12-04 16:45 | disposition home or self-care (01) | DRG 640 ==
LOC: ER 17:52 → TELE 22:30 → MED 12-02 09:43
PROVIDERS: ADMIT Internal Medicine; ATTEND Internal Medicine
DX: E87.6 Hypokalemia (principal); J96.20 Acute and chronic respiratory failure, unspecified whether with hypoxia or hypercapnia; E44.0 Moderate protein-calorie malnutrition; G93.1 Anoxic brain damage, not elsewhere classified; J91.0 Malignant pleural effusion; C78.02 Secondary malignant neoplasm of left lung; C78.01 Secondary malignant neoplasm of right lung; E83.42 Hypomagnesemia; D63.8 Anemia in other chronic diseases classified elsewhere; E78.5 Hyperlipidemia, unspecified; I10 Essential (primary) hypertension; K21.9 Gastro-esophageal reflux disease without esophagitis; Z90.12 Acquired absence of left breast and nipple; E88.09 Other disorders of plasma-protein metabolism, not elsewhere classified; C50.919 Malignant neoplasm of unspecified site of unspecified female breast; Z68.30 Body mass index [BMI] 30.0-30.9, adult; Z87.01 Personal history of pneumonia (recurrent)
CPT/HCPCS: 36415; 71045-TC; 80048-TC; 80076-TC; 82728-TC; 82746; 83540-TC; 83735-TC; 84100-TC; 84439-TC; 84443-TC; 85025-TC; 85730-TC; 87081-TC; A4606; J3475; J3480; J7030; Z7610